=== PATIENT | male | born 1935 | race Caucasian/White ===

== ENCOUNTER 2017-01-12 14:45 | Emergency (ER) | payer MEDICARE, BC ==
[2017-01-12] MEDS ORDERED: Amoxicillin/Clavulanate K 875-125 MG Tab ONE (15:30)
--- NOTE | 2017-01-12 16:24 | EDM.PDOC ---
ED HPI GENERAL MEDICAL PROBLEM - General Chief Complaint: Lower Extremity Injury/Pain Stated Complaint: FLUID RETENTION/ LEFT LOWER EXTREMITY PAIN Time Seen by Provider: 01/12/17 15:30 Source of Information: Reports: Patient History Limitations: Reports: No Limitations - History of Present Illness INITIAL COMMENTS - FREE TEXT/NARRATIVE: This is a pleasant 81yo M here for recent swelling of b/l ankles and feet. Patient states the left foot is especially enlarged and tender. He has had prior infection of the lower extremity in the past requiring parenteral antibiotics for a month. Mr. Navarrete was recently changed from Furosemide to Torsemide about a week ago. He states he has not noticed much change in his urination and possibly decreased urine output. He did have some labs yesterday that showed a GFR of 51 which is at his baseline. Patient denies any shortness of breath that is worse from his COPD, he denies any increased dyspnea, no chest pain or tightness or other concerns. Denies any dizziness or lightheadedness. Patient does keep a daily weight log and shows that he started at a weight of 249lbs and is fluctuating around 1-2 lbs up and down at 240-242 lbs the past week since starting the torsemide. Patient does feel that he urinated more with the furosemide and he has not been doing so with the torsemide and also has been having increased swelling of the legs since the start of torsemide. Onset: Gradual Duration: Day(s): Severity: Moderate Improves with: Reports: None Worsens with: Reports: None Associated Symptoms: Reports: No Other Symptoms Left Lower Leg Pain Score (Numeric/FACES): 4 - Related Data Allergies Allergy/AdvReac Type Severity Reaction Status Date / Time No Known Allergies Allergy Verified 01/12/17 15:42 Past Medical History HEENT History: Reports: None Cardiovascular History: Reports: Heart Valve Replacement, High Cholesterol, Hypertension Respiratory History: Reports: COPD Gastrointestinal History: Reports: None Genitourinary History: Reports: Other (See Below) Other Genitourinary History: horseshoe kidney Endocrine/Metabolic History: Reports: Hypothyroidism Dermatologic History: Reports: Cellulitis - Past Surgical History HEENT Surgical History: Reports: Tonsillectomy Cardiovascular Surgical History: Reports: Coronary Artery Bypass, Pacer, Valve Replacement Respiratory Surgical History: Reports: None GI Surgical History: Reports: Cholecystectomy, Hernia Repair/Other Male Surgical History: Reports: None Musculoskeletal Surgical History: Reports: Knee Replacement Social & Family History - Tobacco Use Smoking Status *Q: Never Smoker - Recreational Drug Use Recreational Drug Use: No Review of Systems - Review of Systems Review Of Systems: ROS reveals no pertinent complaints other than HPI. ED EXAM, GENERAL - Physical Exam Exam: See Below Exam Limited By: No Limitations General Appearance: Alert, WD/WN, No Apparent Distress Eye Exam: Bilateral Eye: EOMI, PERRL Nose: Normal Inspection Throat/Mouth: Normal Inspection Head: Atraumatic, Normocephalic Respiratory/Chest: No Respiratory Distress, Lungs Clear, Normal Breath Sounds, Decreased Breath Sounds Cardiovascular: Other (b/l lower extremity edema 3+ up to knees) Peripheral Pulses: 2+: Dorsalis Pedis (L), Dorsalis Pedis (R) GI/Abdominal: Normal Bowel Sounds, Soft, Non-Tender Extremities: Pedal Edema Neurological: Alert, Oriented, CN II-XII Intact Psychiatric: Normal Affect, Normal Mood Skin Exam: Warm, Dry, Intact, Increased Warmth, Other (slight redness circumferential of the left lower calf area) Course - Vital Signs Last Recorded V/S: Last Vital Signs Temp 37.0 C 01/12/17 15:22 Pulse 65 01/12/17 15:22 Resp 18 01/12/17 15:22 BP 139/61 01/12/17 15:22 Pulse Ox 96 01/12/17 15:22 Departure - Departure Time of Disposition: 16:30 Disposition: Home, Self-Care 01 Condition: Good Clinical Impression: Edema, peripheral, Redness of skin - Discharge Information Instructions: Amoxicillin; Clavulanic Acid tablets, Chlorthalidone tablets Forms: ED Department Discharge Additional Instructions: Start Chlorthalidone 25mg every day for 30 days. Start Saturday when you get your script filled. Restart Lasix 40mg twice a day. Stop Torsemide. Provider stated if you don't notice that you are peeing any more, may increase Lasix to 80mg twice a day. Augmentin 1 tab orally twice a day for 10 days. Take with food. May cause diarrhea. Eat yogurt every day while you are on antibiotic. When you are sitting, elevate your legs. Continue with daily weights. Make follow up appt with Dr. Reynaga for next Saturday. Counseled on peripheral edema with continued daily weights and monitoring. I do not feel this is congestion due to any heart concerns. We will f/u electrolytes , edema and redness for infection at the next office visit or as needed. Patient to rtc or ER as needed.
== END 2017-01-12 16:17 | disposition home or self-care (01) ==
LOC: LB.ED 14:45
DX: R60.9 Edema, unspecified (principal); L53.9 Erythematous condition, unspecified; E78.00 Pure hypercholesterolemia, unspecified; I10 Essential (primary) hypertension; J44.9 Chronic obstructive pulmonary disease, unspecified; E03.9 Hypothyroidism, unspecified; Z95.1 Presence of aortocoronary bypass graft; Z95.0 Presence of cardiac pacemaker; Z90.49 Acquired absence of other specified parts of digestive tract
CPT/HCPCS: 99283; A9270

== ENCOUNTER 2017-09-16 15:42 | Emergency (ER) | payer MEDICARE, BC ==
[2017-09-16] MEDS ORDERED: Lidocaine 1% 20 ML MDV ONE (16:10)
--- NOTE | 2017-09-17 00:31 | ER ---
The patient is an 82-year-old female. DICTATION ENDS HERE GORGE/ZOILA /[id number]
--- NOTE | 2017-09-17 00:58 | ER ---
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 He notes he has taken the skin off the entire side of his left arm. ALLERGIES: NKDA. MEDICATIONS: Current medications are 1. Atorvastatin 80 mg p.o. daily. 2. Torsemide 80 mg p.o. daily. 3. Spiriva 2 puffs daily. 4. Terazosin 5 mg p.o. daily. 5. Spironolactone 25 mg p.o. daily. 6. Cozaar 25 mg p.o. daily. 7. Levothyroxine 125 mg p.o. daily. 8. Colace 100 mg p.o. daily. 9. Budesonide 2 puffs b.i.d. 10.Pradaxa 150 mg p.o. b.i.d. 11.Aspirin 81 mg p.o. daily. 12.Some Tylenol Arthritis which he takes p.r.n. PAST MEDICAL HISTORY: The patient has a previous history of congestive failure, hypertension and COPD. PHYSICAL EXAMINATION: GENERAL: He is alert, oriented, and in no apparent distress. VITAL SIGNS: Good. Pulse is 60, blood pressure is 132/53, respiratory rate is 19, and O2 saturation is 99%. HEART: Regular sinus rhythm. LUNGS: Clear. EXTREMITIES: On the left arm, the patient has avulsed the skin off the dorsal aspect of the forearm basically from his wrist to his elbow, pretty much all of the skin on the dorsal aspect of the forearm. He has a couple of small skin tears on the ventral aspect also, and on the lateral aspect of the upper arm, he has basically avulsed the piece of skin bigger than a palm-print, but the worst one is on the forearm. We basically put some topical 1% lidocaine with epinephrine on with a moist gauze pad and let it sit for a little bit. We then washed off the clotted blood both on the surface of the arm and on the ventral surface of the remaining skin. Fortunately, 98% of his skin was still attached; however, there was no blood supply to it because his skin is really quite thin. We cleaned off any clotted blood or grafts, etc., with normal saline after soaking it with the epinephrine/lidocaine for a bit. The patient tolerated it quite well as he no longer had any pain with that. We then stretched the skin out, flattened it down, made sure there was no blood underneath it, steri-stripped all the edges, put some Bactroban along the open edge, and put some Xeroform gauze over that. We then wrapped it with a Kerlix and then gently put an Benjamin wrap on to apply a little pressure. The patient probably has 4% to 5% body surface area going by his palm-print with the skin avulsed, however, 98% of the skin was still there, so we put it back on and hopefully will act as a graft and adhere. I did discuss with him he needs to take it easy for the next 2 days, not remove the dressing, and then come back into clinic. He needs to avoid flexing and extending his arm, come back into the clinic in [address] Reynaga to change the dressing and take a look to make sure there are no signs of infection, etc. This did take about an hour to get the skin all back on and get it all cleaned up and steri-stripped and dressed, etc. GORGE/ZOILA /[id number]
--- NOTE | 2017-10-28 08:20 | ER ---
ADDENDUM: FINAL DIAGNOSIS: Skin avulsion, 4-5% body surface area. GORGE/ZOILA /[id number]
== END 2017-09-16 16:00 | disposition home or self-care (01) ==
LOC: LB.ED 15:42
DX: S41.112A Laceration without foreign body of left upper arm, initial encounter (principal); J44.9 Chronic obstructive pulmonary disease, unspecified; I11.0 Hypertensive heart disease with heart failure; I50.9 Heart failure, unspecified; Z79.899 Other long term (current) drug therapy; Z79.82 Long term (current) use of aspirin; V98.8XXA Other specified transport accidents, initial encounter
CPT/HCPCS: 99283; 99354

== ENCOUNTER 2017-09-17 16:39 | Emergency (ER) | payer MEDICARE, BC ==
[~2017-09-17 16:39] MED LIST: Acetaminophen/oxyCODONE 325-5 MG Tab ONE
[2017-09-17] MEDS ORDERED: Diphtheria/Tetanus Toxoids,Adult (Td) 0.5 ML SDV IM ONE (18:29)
--- NOTE | 2017-09-17 23:58 | ER ---
DATE OF SERVICE: 09/17/2017 HPI: An 82-year-old male here with complaints of chest pain that seems to happen when coughing or taking a deep breath or changing positions. The patient states that it started yesterday, but it was not so bad. This is when he had an accident. 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 He came in, was seen here in the emergency room for multiple injuries to the left arm with the skin being abraded and having what it sounds like multiple skin tears. The ER physician cleansed the arm well and reapplied the pieces of loose skin and applied the Nu Gauze over the area as well as a padded dressing. The patient does have an appointment tomorrow morning to see Dr. Reynaga for a followup in this regard. The patient states his arm is painful, but it is not his biggest concern today. His chest wall pain on the left side is. He does not feel nauseated. He is concerned because his ankles are both swelling more and he feels he has gained, maybe as much as 8 pounds in the last few days. The patient is on diuretics as well telling me he takes Lasix 40 mg every morning and another diuretic, he is not sure about the name of. The patient denies any significant shortness of breath, but tells me that when he coughs it is quite painful. OBJECTIVE: GENERAL APPEARANCE: The patient is awake and alert, in no obvious distress. VITAL SIGNS: Reviewed. Initial blood pressure 118/45, temp is 99 degrees, pulse is 60, O2 sats are 94%. Physical exam, lung exam reveals lungs are clear, but the patient is not able to take much of a deep breath. I do not hear any obvious rales, wheezes, or rhonchi. He does have pain with palpation over the left anterior chest wall with some guarding present. SKIN: Warm and dry in this area. CARDIAC: Heart sounds distinct with a regular rate. The patient does have a pacemaker. LABORATORY DATA: Labs today include a CBC showing a normal white count. Neutrophils are slightly elevated at 79.5. Basic metabolic panel shows the electrolytes are good. Blood sugar is 156, nonfasting. A chest CT was also done showing 2 acute rib fractures posteriorly involving the fifth and sixth rib. DIAGNOSES: 1. Rib fractures due to a fall one day ago. 2. Recheck involving multiple skin tears with skin abrasions to the left arm. 3. Edema of both lower extremities. TREATMENT PLAN: I informed the patient of the rib fractures. I will give him Percocet to take as needed for pain control. I advised the patient to use this regularly for the first day or 2 and then as needed. If one tablet seems to be too much, he can take one-half tablet and the patient agrees to do this. He does have a good recliner chair at home that is electric. I advised the patient that this is where he needs to be sleeping for the next couple of weeks. The patient can splint the left chest wall with a pillow if he needs to cough. In turning my attention to the patient's left arm, the dressing has soaked through with the reddish colored discharge in multiple places. The gauze portion of the dressing was removed and replaced with a new dressing. I did not remove the underlying dressing, which would be a Xeroform gauze. Lastly, in looking at the patient's ankles, he does have 2 to 3+ pitting edema involving both lower legs and ankles. I advised the patient that he should increase his Lasix dose temporarily. He takes Lasix 40 mg in the morning. He should increase this to b.i.d. dosing starting tomorrow. The patient does have an appointment once again with Dr. Reynaga tomorrow at about 1:30 I believe in the afternoon. He can wait and consult with Dr. Reynaga in this regard, but he is to follow up with Dr. Reynaga for all of these conditions and to answer any further questions that the patient may have at that time. He has no further questions tonight. CRS/MODL /[id number] ROD
--- NOTE | 2017-09-18 09:58 | CT ---
UNENHANCED CHEST CT, 09/17/17 Multislice acquisition through the chest without IV contrast was performed. No priors. Breathing motion artifact significantly degrades image quality. The patient is status post median sternotomy. There is a cardiac pacer overlying the left chest and the distal pacer wires are noted within the right atrium and right ventricle. There are atelectatic changes within the left lower lobe and lingular segment of the left upper lobe with eventration of the left hemidiaphragm. There are also mild atelectatic changes in the right lung base. No pneumothorax. There is a small left pleural effusion. The heart is enlarged. There are extensive coronary artery calcifications. The patient is status post aortic valve repair. No hilar or mediastinal adenopathy. There are nondisplaced, minimally displaced fractures of the left fifth and sixth ribs. No other displaced fractures. IMPRESSION: Fractures of the left fifth and sixth ribs as discussed above. Small left pleural effusion. No pneumothorax. Other findings as discussed above. [id number] [facility]
== END 2017-09-17 18:50 ==
LOC: LB.ED 16:39
DX: S22.42XA Multiple fractures of ribs, left side, initial encounter for closed fracture (principal); J90 Pleural effusion, not elsewhere classified; S40.812A Abrasion of left upper arm, initial encounter; R60.0 Localized edema; X58.XXXA Exposure to other specified factors, initial encounter
CPT/HCPCS: 36415; 71250; 80048; 83880; 85025; 90471; 90714; 99284; A9270

== ENCOUNTER 2017-11-05 13:36 | Emergency (ER) | payer MEDICARE, BC ==
[2017-11-05] MEDS ORDERED: Lidocaine 1% with EPINEPHrine 1:100,000 20 ML MDV ONE (14:45)
--- NOTE | 2017-11-05 23:02 | ER ---
HISTORY OF PRESENT ILLNESS: An 82-year-old male who comes in after slipping and falling and sustaining a large laceration to the right leg just below the knee. The patient states he just lost his balance and fell to the floor and his leg rubbed on the carpet. He tells me that he has not been able to stand and walk with just minimal discomfort. Pressure was held to the area to try to stop the bleeding. He did bleed quite a bit for a few minutes. The patient denied any other injuries. OBJECTIVE: GENERAL APPEARANCE: The patient is awake and alert. No obvious distress. VITAL SIGNS: Reviewed as listed. EXTREMITIES: Examining the right leg reveals a transverse laceration just below the patient's patella and that measures 9 cm in length. It is gaping about 3 to 4 cm at the widest point at this time, it is a full thickness through the epidermis and dermis down to the fascia. I do not see any damage to the fascia. DIAGNOSIS: Laceration to right leg. TREATMENT PLAN: The site was cleansed by nursing staff initially after which I injected 1% lidocaine with epi locally injecting 6 mL around the perimeter of the laceration. Then, we proceeded with more irrigation, irrigating the site well using about 400 to 500 mL after which a sterile field was applied and I repaired the wound with sutures, it required 20 sutures using 4-0 Ethilon. The patient tolerated the procedure well. POST-CARE INSTRUCTION: Nursing staff applied antibiotic ointment, Telfa, Preet, and Coban as a circumferential dressing. This is to remain in place until he follows up in the clinic on for recheck. It should be changed sooner if it becomes wet or soiled. I will start the patient on Augmentin for one week. The patient feels he is current on his tetanus. He declines any pain medication stating that it has not been severely painful at all since the incident happened. The patient agrees to follow up in the clinic on . MANN/MODL /[id number]
== END 2017-11-05 14:30 | disposition home or self-care (01) ==
LOC: LB.ED 13:36
DX: S81.811A Laceration without foreign body, right lower leg, initial encounter (principal); W01.0XXA Fall on same level from slipping, tripping and stumbling without subsequent striking against object, initial encounter
CPT/HCPCS: 12004; 99283-25

== ENCOUNTER 2017-11-27 15:10 | Inpatient (IN) | payer SELFPAY ==
--- NOTE | 2017-11-27 16:51 | PCM.HP ---
H&P History of Present Illness - General Date of Service: 11/27/17 Admit Problem/Dx: Admission Diagnosis/Problem Admission Diagnosis/Problem Wound Source of Information: Patient History Limitations: Reports: No Limitations - History of Present Illness Initial Comments - Free Text/Narative: This is a pleasant 82yo M admitted to respite care for wound monitoring and care as well as PT/OT. Patient has had multiple falls with abrasions and non- healing wounds. There appears to be some infection and poor healing of his wounds and he has been unable to ambulate well and now with a revision of the right knee and immobilizer he is unable to independently stay at home. Onset of Symptoms: Reports: Gradual Location: Reports: Upper Extremity, Left, Upper Extremity, Right, Lower Extremity, Right Severity: Moderate Worsens with: Reports: Movement - Related Data Allergies/Adverse Reactions: Allergies Allergy/AdvReac Type Severity Reaction Status Date / Time No Known Allergies Allergy Verified 01/12/17 15:42 Home Medications: Home Meds Acetaminophen [Tylenol Arthritis] 650 mg PO BID 01/12/17 [History] Aspirin [Lakisha Chewable] 81 mg PO DAILY 01/12/17 [History] Budesonide/Formoterol [Symbicort 160-4.5 MCG] 2 puff INH BID 01/12/17 [History] Dabigatran Etexilate Mesylate [Pradaxa] 150 mg PO BID 01/12/17 [History] Docusate Sodium [Colace] 100 mg PO DAILY 01/12/17 [History] Levothyroxine 125 mcg PO ACBREAKFAST 01/12/17 [History] Losartan [Cozaar] 25 mg PO DAILY 01/12/17 [History] Multivitamin with Iron [Multivitamins with Iron] 1 each PO DAILY 01/12/17 [ History] Spironolactone [Aldactone] 25 mg PO DAILY 01/12/17 [History] Terazosin [Hytrin] 5 mg PO DAILY 01/12/17 [History] Tiotropium [Spiriva Handihaler] 2 puff INH DAILY 01/12/17 [History] Torsemide 80 mg PO DAILY 01/12/17 [History] atorvaSTATin Calcium [Atorvastatin Calcium] 80 mg PO QPM 01/12/17 [History] Past Medical History HEENT History: Reports: None Cardiovascular History: Reports: Heart Valve Replacement, High Cholesterol, Hypertension Respiratory History: Reports: COPD Gastrointestinal History: Reports: None Genitourinary History: Reports: Other (See Below) Other Genitourinary History: horseshoe kidney Musculoskeletal History: Reports: Arthritis Endocrine/Metabolic History: Reports: Hypothyroidism Dermatologic History: Reports: Cellulitis - Infectious Disease History Infectious Disease History: Reports: Chicken Pox - Past Surgical History HEENT Surgical History: Reports: Tonsillectomy Cardiovascular Surgical History: Reports: Coronary Artery Bypass, Pacer, Valve Replacement Respiratory Surgical History: Reports: None GI Surgical History: Reports: Cholecystectomy, Hernia Repair/Other Male Surgical History: Reports: None Musculoskeletal Surgical History: Reports: Knee Replacement Social & Family History - Family History Family Medical History: Noncontributory - Caffeine Use Caffeine Use: Reports: Coffee H&P Review of Systems - Review of Systems: Review Of Systems: ROS reveals no pertinent complaints other than HPI. Exam - Exam Exam: See Below - Vital Signs Vital Signs: Last Vital Signs Temp 36.9 C 11/27/17 15:50 Pulse 60 11/27/17 15:50 Resp 16 11/27/17 15:50 BP 131/46 L 11/27/17 15:50 Pulse Ox 98 11/27/17 15:50 - Exam General: Alert, Oriented, Cooperative HEENT: PERRLA, Conjunctiva Clear, EACs Clear, EOMI Neck: Supple, Trachea Midline Lungs: Clear to Auscultation, Normal Respiratory Effort Cardiovascular: Regular Rate, Regular Rhythm GI/Abdominal Exam: Normal Bowel Sounds Extremities: Arm Pain, Redness, Other (multiple abrasions and wounds) Skin: Ecchymosis, Wound - Problem List (1) Abrasion of left upper extremity SNOMED Code(s): 739139107 ICD Code: S40.812A - ABRASION OF LEFT UPPER ARM, INITIAL ENCOUNTER Status: Acute Priority: High Current Visit: Yes Qualifiers: Encounter type: sequela Qualified Code(s): S40.812S - Abrasion of left upper arm, sequela (2) Abrasion of right upper extremity SNOMED Code(s): 187086702 ICD Code: S40.811A - ABRASION OF RIGHT UPPER ARM, INITIAL ENCOUNTER Status : Acute Priority: High Current Visit: Yes Qualifiers: Encounter type: sequela Qualified Code(s): S40.811S - Abrasion of right upper arm, sequela (3) Edema, peripheral SNOMED Code(s): 643074392 ICD Code: R60.9 - EDEMA, UNSPECIFIED Status: Chronic Priority: High Current Visit: Yes (4) Laceration of leg, right SNOMED Code(s): 387416384 ICD Code: S81.811A - LACERATION W/O FOREIGN BODY, RIGHT LOWER LEG, INIT ENCNTR Status: Acute Priority: High Current Visit: Yes Onset Date: ~ Qualifiers: Encounter type: sequela Qualified Code(s): S81.811S - Laceration without foreign body, right lower leg, sequela (5) Redness of skin SNOMED Code(s): 16437642 ICD Code: L53.9 - ERYTHEMATOUS CONDITION, UNSPECIFIED Status: Acute Priority: High Current Visit: Yes Problem List Initiated/Reviewed/Updated: Yes Orders Last 24hrs: Active Orders 24 hr Category Date Time Status Patient Status [ADT] Routine ADT 11/27/17 15:55 Active Vital Signs [RC] QSHIFT Care 11/27/17 15:55 Ordered Acetaminophen [Tylenol Arthritis Pain] Med 11/27/17 20:00 Ordered 650 mg PO BID Aspirin Med 11/28/17 08:00 Ordered 81 mg PO DAILY Budesonide/Formoterol [Symbicort 160-4.5 MCG] Med 11/27/17 20:00 Ordered 2 puff INH BID Dabigatran Etexilate Mesylate [Pradaxa] Med 11/27/17 20:00 Ordered 150 mg PO BID Docusate Sodium [Colace] Med 11/28/17 08:00 Ordered 100 mg PO DAILY Levothyroxine [Levothyroxine] Med 11/28/17 07:00 Ordered 125 mcg PO ACBREAKFAST Losartan [Cozaar] Med 11/28/17 08:00 Ordered 25 mg PO DAILY Multivitamin with Iron [Multivitamins with Iron] Med 11/28/17 08:00 Ordered 1 each PO DAILY Spironolactone [Aldactone] Med 11/28/17 08:00 Ordered 25 mg PO DAILY Terazosin [Hytrin] Med 11/28/17 08:00 Ordered 5 mg PO DAILY Tiotropium [Spiriva HandiHaler] Med 11/28/17 08:00 Ordered 2 puff INH DAILY Torsemide [Demadex] Med 11/28/17 08:00 Ordered 80 mg PO DAILY atorvaSTATin [Lipitor] Med 11/27/17 20:00 Ordered 80 mg PO QPM Assessment/Plan Comment:: Patient admitted to respite care for management of wounds and wound care. PT/OT therapy as well.
[2017-11-28] MEDS: Spironolactone 25 MG Tab PO SCH (08:00)
[2017-11-28] MEDS: [UNRECOGNIZED DRUG - OTHER] INH SCH (08:00)
[2017-11-28] MEDS: TERAZOSIN 5 MG PO SCH (08:00)
[2017-11-28] MEDS ORDERED: Tiotropium Inhaler 18 MCG Inhalation Powder Cap Kit of 5 INH SCH (08:00)
[2017-11-28] MEDS: Non-Formulary Medication 1 Each (Budesonide/Formoterol [Symbicort 160-4.5 Mcg] 2 PUFF) INH SCH ×3 (08:00→20:54)
[2017-11-28] MEDS: Acetaminophen 650 MG Tab.ER PO SCH ×3 (08:00→20:58)
[2017-11-28] MEDS: [UNRECOGNIZED DRUG - OTHER] PO SCH (08:00)
[2017-11-28] MEDS: Aspirin 81 MG Tab.Chew PO SCH (08:00)
[2017-11-28] MEDS: Non-Formulary Medication 1 Each (Levothyroxine [Levothyroxine] 125 MCG) PO SCH (08:00)
[2017-11-28] MEDS: Docusate Sodium 100 MG Cap PO SCH (08:00)
[2017-11-28] MEDS: MULTIVITAMIN WITH IRON PO SCH (08:00)
[2017-11-28] MEDS: DABIGATRAN ETEXILATE MESYLATE 150 MG PO SCH ×3 (08:00→20:56)
[2017-11-28] MEDS: Amoxicillin/Clavulanate K 875-125 MG Tab PO SCH ×2 (08:00→20:53)
[2017-11-28] MEDS: Torsemide 20 MG Tab PO SCH (08:00)
[2017-11-28] MEDS: Losartan 25 MG Tab PO SCH (08:00)
[2017-11-28] MEDS: atorvaSTATin 80 MG Tab PO SCH ×2 (10:40→20:58)
[2017-11-29] MEDS ORDERED: Levothyroxine 25 MCG Tab ONE (09:10)
[2017-11-29] MEDS: Non-Formulary Medication 1 Each (Budesonide/Formoterol [Symbicort 160-4.5 Mcg] 2 PUFF) INH SCH ×2 (09:11→20:17)
[2017-11-29] MEDS ORDERED: Levothyroxine 100 MCG Tab ONE (09:11)
[2017-11-29] MEDS: [UNRECOGNIZED DRUG - OTHER] INH SCH (09:12)
[2017-11-29] MEDS: Acetaminophen 650 MG Tab.ER PO SCH ×2 (09:12→20:19)
[2017-11-29] MEDS: Docusate Sodium 100 MG Cap PO SCH (09:12)
[2017-11-29] MEDS: MULTIVITAMIN WITH IRON PO SCH (09:13)
[2017-11-29] MEDS: TERAZOSIN 5 MG PO SCH (09:13)
[2017-11-29] MEDS: Aspirin 81 MG Tab.Chew PO SCH (09:13)
[2017-11-29] MEDS: [UNRECOGNIZED DRUG - OTHER] PO SCH (09:13)
[2017-11-29] MEDS: Torsemide 20 MG Tab PO SCH (09:14)
[2017-11-29] MEDS: Spironolactone 25 MG Tab PO SCH (09:14)
[2017-11-29] MEDS: Losartan 25 MG Tab PO SCH (09:15)
[2017-11-29] MEDS: Amoxicillin/Clavulanate K 875-125 MG Tab PO SCH ×2 (09:15→20:20)
[2017-11-29] MEDS: DABIGATRAN ETEXILATE MESYLATE 150 MG PO SCH ×2 (09:15→20:19)
[2017-11-29] MEDS: Non-Formulary Medication 1 Each (Levothyroxine [Levothyroxine] 125 MCG) PO SCH (09:19)
[2017-11-29] MEDS: traMADol 50 MG Tab PO PRN ×2 (16:42→22:12)
[2017-11-29] MEDS: atorvaSTATin 80 MG Tab PO SCH (20:21)
[2017-11-30] MEDS ORDERED: Levothyroxine 100 MCG Tab ONE (07:51)
[2017-11-30] MEDS ORDERED: Levothyroxine 25 MCG Tab ONE (07:51)
[2017-11-30] MEDS: MULTIVITAMIN WITH IRON PO SCH (07:55)
[2017-11-30] MEDS: [UNRECOGNIZED DRUG - OTHER] PO SCH (07:55)
[2017-11-30] MEDS: TERAZOSIN 5 MG PO SCH (07:55)
[2017-11-30] MEDS: Acetaminophen 650 MG Tab.ER PO SCH ×2 (07:55→19:50)
[2017-11-30] MEDS: DABIGATRAN ETEXILATE MESYLATE 150 MG PO SCH ×2 (07:56→19:47)
[2017-11-30] MEDS: Losartan 25 MG Tab PO SCH (07:57)
[2017-11-30] MEDS: Spironolactone 25 MG Tab PO SCH (07:57)
[2017-11-30] MEDS: Docusate Sodium 100 MG Cap PO SCH (07:58)
[2017-11-30] MEDS: Amoxicillin/Clavulanate K 875-125 MG Tab PO SCH ×2 (07:58→19:48)
[2017-11-30] MEDS: Aspirin 81 MG Tab.Chew PO SCH (07:59)
[2017-11-30] MEDS: Non-Formulary Medication 1 Each (Levothyroxine [Levothyroxine] 125 MCG) PO SCH (08:00)
[2017-11-30] MEDS: [UNRECOGNIZED DRUG - OTHER] INH SCH (08:01)
[2017-11-30] MEDS: Non-Formulary Medication 1 Each (Budesonide/Formoterol [Symbicort 160-4.5 Mcg] 2 PUFF) INH SCH ×2 (08:01→19:46)
[2017-11-30] MEDS: Torsemide 20 MG Tab PO SCH (08:09)
[2017-11-30] MEDS: traMADol 50 MG Tab PO PRN ×2 (17:27→19:51)
[2017-11-30] MEDS: atorvaSTATin 80 MG Tab PO SCH (19:49)
[2017-12-01] MEDS: Non-Formulary Medication 1 Each (Budesonide/Formoterol [Symbicort 160-4.5 Mcg] 2 PUFF) INH SCH ×2 (08:10→19:28)
[2017-12-01] MEDS: Acetaminophen 650 MG Tab.ER PO SCH ×2 (08:10→19:28)
[2017-12-01] MEDS: Spironolactone 25 MG Tab PO SCH (08:10)
[2017-12-01] MEDS: [UNRECOGNIZED DRUG - OTHER] PO SCH (08:10)
[2017-12-01] MEDS: Docusate Sodium 100 MG Cap PO SCH (08:10)
[2017-12-01] MEDS: MULTIVITAMIN WITH IRON PO SCH (08:10)
[2017-12-01] MEDS: DABIGATRAN ETEXILATE MESYLATE 150 MG PO SCH ×2 (08:11→19:31)
[2017-12-01] MEDS: TERAZOSIN 5 MG PO SCH (08:11)
[2017-12-01] MEDS: Amoxicillin/Clavulanate K 875-125 MG Tab PO SCH ×2 (08:11→19:30)
[2017-12-01] MEDS: Non-Formulary Medication 1 Each (Levothyroxine [Levothyroxine] 125 MCG) PO SCH (08:11)
[2017-12-01] MEDS: Aspirin 81 MG Tab.Chew PO SCH (08:12)
[2017-12-01] MEDS: Losartan 25 MG Tab PO SCH (08:12)
[2017-12-01] MEDS: Torsemide 20 MG Tab PO SCH (08:12)
[2017-12-01] MEDS: [UNRECOGNIZED DRUG - OTHER] INH SCH (08:13)
[2017-12-01] MEDS: atorvaSTATin 80 MG Tab PO SCH (19:30)
[2017-12-01] MEDS: traMADol 50 MG Tab PO PRN (19:34)
[2017-12-02] MEDS: [UNRECOGNIZED DRUG - OTHER] INH SCH (07:45)
[2017-12-02] MEDS: Non-Formulary Medication 1 Each (Budesonide/Formoterol [Symbicort 160-4.5 Mcg] 2 PUFF) INH SCH ×2 (07:45→20:11)
[2017-12-02] MEDS: MULTIVITAMIN WITH IRON PO SCH (07:46)
[2017-12-02] MEDS: [UNRECOGNIZED DRUG - OTHER] PO SCH (07:46)
[2017-12-02] MEDS: Non-Formulary Medication 1 Each (Levothyroxine [Levothyroxine] 125 MCG) PO SCH (07:46)
[2017-12-02] MEDS: Torsemide 20 MG Tab PO SCH (07:46)
[2017-12-02] MEDS: Spironolactone 25 MG Tab PO SCH (07:46)
[2017-12-02] MEDS: Docusate Sodium 100 MG Cap PO SCH (07:46)
[2017-12-02] MEDS: DABIGATRAN ETEXILATE MESYLATE 150 MG PO SCH ×2 (07:47→20:09)
[2017-12-02] MEDS: Losartan 25 MG Tab PO SCH (07:48)
[2017-12-02] MEDS: Amoxicillin/Clavulanate K 875-125 MG Tab PO SCH ×2 (07:48→20:11)
[2017-12-02] MEDS: Aspirin 81 MG Tab.Chew PO SCH (07:48)
[2017-12-02] MEDS: TERAZOSIN 5 MG PO SCH (07:48)
[2017-12-02] MEDS: Acetaminophen 650 MG Tab.ER PO SCH ×2 (08:24→20:08)
[2017-12-02] MEDS ORDERED: cefTRIAXone 1 GM Vial ONE (11:16)
[2017-12-02] MEDS ORDERED: cefTRIAXone 1 GM Vial IM ONE (13:17)
--- NOTE | 2017-12-02 17:26 | PCM.PN ---
- General Info Date of Service: 12/02/17 Subjective Update: Patient states he is doing well. His wounds have some drainage and he denies any fever or chills. - Review of Systems General: Reports: Weakness HEENT: Reports: No Symptoms Pulmonary: Reports: No Symptoms Cardiovascular: Reports: No Symptoms Gastrointestinal: Reports: No Symptoms Genitourinary: Reports: No Symptoms Musculoskeletal: Reports: No Symptoms Skin: Reports: Other (wound of the right elbow, right hand, right knee) Neurological: Reports: Difficulty Walking, Weakness - Patient Data Vitals - Most Recent: Last Vital Signs Temp 36.9 C 12/02/17 08:00 Pulse 60 12/02/17 08:00 Resp 16 12/02/17 08:00 BP 140/51 L 12/02/17 08:00 Pulse Ox 92 L 12/02/17 08:00 Weight - Most Recent: 103.561 kg Med Orders - Current: Current Medications Acetaminophen (Tylenol Arthritis Pain) 650 mg PO BID [facility] Last Admin: 12/02/17 08:24 Dose: 650 mg Amoxicillin/Clavulanate Potassium (Augmentin 875 Mg/125 Mg) 1 tab PO BID [facility] Last Admin: 12/02/17 07:48 Dose: 1 tab Aspirin (Aspirin) 81 mg PO DAILY [facility] Last Admin: 12/02/17 07:48 Dose: 81 mg Atorvastatin Calcium (Lipitor) 80 mg PO QPM [facility] Last Admin: 12/01/17 19:30 Dose: 80 mg Docusate Sodium (Colace) 100 mg PO DAILY [facility] Last Admin: 12/02/17 07:46 Dose: 100 mg Losartan Potassium (Cozaar) 25 mg PO DAILY [facility] Last Admin: 12/02/17 07:48 Dose: 25 mg Non-Formulary Medication (Budesonide/Formoterol [Symbicort 160-4.5 Mcg]) 2 puff INH BID [facility] Last Admin: 12/02/17 07:45 Dose: 2 puff Non-Formulary Medication (Dabigatran Etexilate Mesylate [Pradaxa]) 150 mg PO BID [facility] Last Admin: 12/02/17 07:47 Dose: 150 mg Non-Formulary Medication (Levothyroxine [Levothyroxine]) 125 mcg PO ACBREAKFAST [facility] Last Admin: 12/02/17 07:46 Dose: 125 mcg Non-Formulary Medication (Multivitamin With Iron [Multivitamins With Iron]) 1 each PO DAILY [facility] Last Admin: 12/02/17 07:46 Dose: 1 each Non-Formulary Medication (Terazosin [Hytrin]) 5 mg PO DAILY [facility] Last Admin: 12/02/17 07:48 Dose: 5 mg Sprivia Respimat 1 each INH DAILY [facility] Last Admin: 12/02/17 07:45 Dose: 1 each Spironolactone (Aldactone) 25 mg PO DAILY [facility] Last Admin: 12/02/17 07:46 Dose: 25 mg Torsemide (Demadex) 80 mg PO DAILY [facility] Last Admin: 12/02/17 07:46 Dose: 80 mg Tramadol HCl (Ultram) 50 mg PO Q8H PRN PRN Reason: Pain Last Admin: 12/01/17 19:34 Dose: 50 mg Discontinued Medications Ceftriaxone Sodium (Rocephin) Confirm Administered Dose 1 gm .ROUTE .STK-MED ONE Stop: 12/02/17 11:17 Last Admin: 12/02/17 13:23 Dose: 1 gm Ceftriaxone Sodium (Rocephin) 1 gm IM ONETIME ONE Stop: 12/02/17 13:18 Levothyroxine Sodium (Levothyroxine) Confirm Administered Dose 25 mcg .ROUTE .STK-MED ONE Stop: 11/29/17 09:11 Last Admin: 11/29/17 09:32 Dose: Not Given Levothyroxine Sodium (Synthroid) Confirm Administered Dose 100 mcg .ROUTE .STK- MED ONE Stop: 11/29/17 09:12 Last Admin: 11/29/17 09:32 Dose: Not Given Levothyroxine Sodium (Levothyroxine) Confirm Administered Dose 25 mcg .ROUTE .STK-MED ONE Stop: 11/30/17 07:52 Last Admin: 11/30/17 08:10 Dose: Not Given Levothyroxine Sodium (Synthroid) Confirm Administered Dose 100 mcg .ROUTE .STK- MED ONE Stop: 11/30/17 07:52 Last Admin: 11/30/17 08:10 Dose: Not Given - Exam General: Alert, Oriented, Cooperative HEENT: Pupils Equal, Pupils Reactive Neck: Supple Lungs: Clear to Auscultation, Normal Respiratory Effort Cardiovascular: Regular Rate, Regular Rhythm Skin: Other (multiple wounds - healing improved from last check) - Problem List & Annotations (1) Abrasion of left upper extremity SNOMED Code(s): 402959756 Code(s): S40.812A - ABRASION OF LEFT UPPER ARM, INITIAL ENCOUNTER Status: Acute Priority: High Current Visit: Yes Qualifiers: Encounter type: sequela Qualified Code(s): S40.812S - Abrasion of left upper arm, sequela (2) Abrasion of right upper extremity SNOMED Code(s): 064677900 Code(s): S40.811A - ABRASION OF RIGHT UPPER ARM, INITIAL ENCOUNTER Status: Acute Priority: High Current Visit: Yes Qualifiers: Encounter type: sequela Qualified Code(s): S40.811S - Abrasion of right upper arm, sequela (3) Edema, peripheral SNOMED Code(s): 957024376 Code(s): R60.9 - EDEMA, UNSPECIFIED Status: Chronic Priority: High Current Visit: Yes (4) Laceration of leg, right SNOMED Code(s): 546017832 Code(s): S81.811A - LACERATION W/O FOREIGN BODY, RIGHT LOWER LEG, INIT ENCNTR Status: Acute Priority: High Current Visit: Yes Onset Date: ~ Qualifiers: Encounter type: sequela Qualified Code(s): S81.811S - Laceration without foreign body, right lower leg, sequela (5) Redness of skin SNOMED Code(s): 93613109 Code(s): L53.9 - ERYTHEMATOUS CONDITION, UNSPECIFIED Status: Acute Priority: High Current Visit: Yes - Problem List Review Problem List Initiated/Reviewed/Updated: Yes - Plan Plan:: Patient admitted to respite care for management of wounds and wound care. PT/OT therapy as well. 12/02/17 Continue current wound management. Trial of rocephin due to some erythema of knee. F/u recheck as routine. Continue dressing changes daily.
[2017-12-02] MEDS: atorvaSTATin 80 MG Tab PO SCH (20:08)
[2017-12-03] MEDS: Non-Formulary Medication 1 Each (Levothyroxine [Levothyroxine] 125 MCG) PO SCH (07:34)
[2017-12-03] MEDS: DABIGATRAN ETEXILATE MESYLATE 150 MG PO SCH ×2 (07:34→20:35)
[2017-12-03] MEDS: TERAZOSIN 5 MG PO SCH (07:35)
[2017-12-03] MEDS: Aspirin 81 MG Tab.Chew PO SCH (07:35)
[2017-12-03] MEDS: Docusate Sodium 100 MG Cap PO SCH (07:35)
[2017-12-03] MEDS: MULTIVITAMIN WITH IRON PO SCH (07:35)
[2017-12-03] MEDS: [UNRECOGNIZED DRUG - OTHER] PO SCH (07:35)
[2017-12-03] MEDS: Non-Formulary Medication 1 Each (Budesonide/Formoterol [Symbicort 160-4.5 Mcg] 2 PUFF) INH SCH ×2 (07:36→20:37)
[2017-12-03] MEDS: Amoxicillin/Clavulanate K 875-125 MG Tab PO SCH ×2 (07:36→20:35)
[2017-12-03] MEDS: [UNRECOGNIZED DRUG - OTHER] INH SCH (07:37)
[2017-12-03] MEDS: Losartan 25 MG Tab PO SCH (07:37)
[2017-12-03] MEDS: Spironolactone 25 MG Tab PO SCH (07:37)
[2017-12-03] MEDS: Acetaminophen 650 MG Tab.ER PO SCH ×2 (07:40→20:35)
[2017-12-03] MEDS: Torsemide 20 MG Tab PO SCH (10:29)
[2017-12-03] MEDS ORDERED: Acetaminophen/HYDROcodone 325-5 MG Tab PO PRN (11:15)
[2017-12-03] MEDS: atorvaSTATin 80 MG Tab PO SCH (20:35)
[2017-12-04] MEDS: Non-Formulary Medication 1 Each (Levothyroxine [Levothyroxine] 125 MCG) PO SCH (07:18)
[2017-12-04] MEDS: Non-Formulary Medication 1 Each (Budesonide/Formoterol [Symbicort 160-4.5 Mcg] 2 PUFF) INH SCH ×2 (08:00→20:37)
[2017-12-04] MEDS: Docusate Sodium 100 MG Cap PO SCH (08:00)
[2017-12-04] MEDS: [UNRECOGNIZED DRUG - OTHER] INH SCH (08:00)
[2017-12-04] MEDS: Torsemide 20 MG Tab PO SCH (08:01)
[2017-12-04] MEDS: DABIGATRAN ETEXILATE MESYLATE 150 MG PO SCH ×2 (08:01→20:36)
[2017-12-04] MEDS: Amoxicillin/Clavulanate K 875-125 MG Tab PO SCH ×2 (08:01→20:37)
[2017-12-04] MEDS: TERAZOSIN 5 MG PO SCH (08:02)
[2017-12-04] MEDS: [UNRECOGNIZED DRUG - OTHER] PO SCH (08:03)
[2017-12-04] MEDS: Spironolactone 25 MG Tab PO SCH (08:03)
[2017-12-04] MEDS: Acetaminophen 650 MG Tab.ER PO SCH ×2 (08:03→20:35)
[2017-12-04] MEDS: Aspirin 81 MG Tab.Chew PO SCH (08:03)
[2017-12-04] MEDS: MULTIVITAMIN WITH IRON PO SCH (08:03)
[2017-12-04] MEDS: Losartan 25 MG Tab PO SCH (08:04)
[2017-12-04] MEDS: atorvaSTATin 80 MG Tab PO SCH (20:36)
[2017-12-05] MEDS: Non-Formulary Medication 1 Each (Levothyroxine [Levothyroxine] 125 MCG) PO SCH (07:22)
[2017-12-05] MEDS: Aspirin 81 MG Tab.Chew PO SCH (08:24)
[2017-12-05] MEDS: Docusate Sodium 100 MG Cap PO SCH (08:24)
[2017-12-05] MEDS: Acetaminophen 650 MG Tab.ER PO SCH (08:24)
[2017-12-05] MEDS: Amoxicillin/Clavulanate K 875-125 MG Tab PO SCH (08:25)
[2017-12-05] MEDS: Losartan 25 MG Tab PO SCH (08:26)
[2017-12-05] MEDS: DABIGATRAN ETEXILATE MESYLATE 150 MG PO SCH (08:30)
[2017-12-05] MEDS: Torsemide 20 MG Tab PO SCH (08:33)
[2017-12-05] MEDS: TERAZOSIN 5 MG PO SCH (08:34)
[2017-12-05] MEDS: Spironolactone 25 MG Tab PO SCH (08:36)
[2017-12-05] MEDS: [UNRECOGNIZED DRUG - OTHER] INH SCH (08:36)
[2017-12-05] MEDS: Non-Formulary Medication 1 Each (Budesonide/Formoterol [Symbicort 160-4.5 Mcg] 2 PUFF) INH SCH (08:36)
[2017-12-05] MEDS: MULTIVITAMIN WITH IRON PO SCH (08:40)
[2017-12-05] MEDS: [UNRECOGNIZED DRUG - OTHER] PO SCH (08:40)
--- NOTE | 2017-12-05 11:59 | PCM.DCSUM1 ---
Discharge Summary - Hospital Course Free Text/Narrative:: Patient continues to have issues with right knee wound healing. Brief History: Right knee sutures removed without complications. 3 hours later the wound dehisced despite use of immobilizer. - Discharge Data Discharge Date: 12/05/17 Discharge Disposition: Refer to Observation Condition: Good - Discharge Diagnosis/Problem(s) (1) Abrasion of left upper extremity SNOMED Code(s): 145119352 ICD Code: S40.812A - ABRASION OF LEFT UPPER ARM, INITIAL ENCOUNTER Status: Acute Priority: High Current Visit: Yes Qualifiers: Encounter type: sequela Qualified Code(s): S40.812S - Abrasion of left upper arm, sequela (2) Abrasion of right upper extremity SNOMED Code(s): 997597031 ICD Code: S40.811A - ABRASION OF RIGHT UPPER ARM, INITIAL ENCOUNTER Status : Acute Priority: High Current Visit: Yes Qualifiers: Encounter type: sequela Qualified Code(s): S40.811S - Abrasion of right upper arm, sequela (3) Edema, peripheral SNOMED Code(s): 736879562 ICD Code: R60.9 - EDEMA, UNSPECIFIED Status: Chronic Priority: High Current Visit: Yes (4) Laceration of leg, right SNOMED Code(s): 771032256 ICD Code: S81.811A - LACERATION W/O FOREIGN BODY, RIGHT LOWER LEG, INIT ENCNTR Status: Acute Priority: High Current Visit: Yes Onset Date: ~ Qualifiers: Encounter type: sequela Qualified Code(s): S81.811S - Laceration without foreign body, right lower leg, sequela (5) Redness of skin SNOMED Code(s): 09642513 ICD Code: L53.9 - ERYTHEMATOUS CONDITION, UNSPECIFIED Status: Acute Priority: High Current Visit: Yes (6) Wound dehiscence SNOMED Code(s): 902948574 ICD Code: T81.30XA - DISRUPTION OF WOUND, UNSPECIFIED, INITIAL ENCOUNTER Status: Acute Current Visit: Yes - Patient Summary/Data Consults: Consultations 11/27/17 16:51 Consult to Occupational Therapy [OT Evaluation and Treatment] [CONS] Routine Please Evaluate and Treat. OT Reason for Consult: ADL's This query below is only for informational purposes and is not editable. Admission Diagnosis/Problem: Wound PT Evaluation and Treatment [CONS] Routine Please Evaluate and Treat. PT Reason for Consult: Ambulation This query below is only for informational purposes and is not editable. Admission Diagnosis/Problem: Wound - Patient Instructions Diet: Regular Diet as Tolerated - Discharge Plan Home Medications: Home Meds Acetaminophen [Tylenol Arthritis] 650 mg PO BID 01/12/17 [History] Aspirin [Lakisha Chewable] 81 mg PO DAILY 01/12/17 [History] Budesonide/Formoterol [Symbicort 160-4.5 MCG] 2 puff INH BID 01/12/17 [History] Dabigatran Etexilate Mesylate [Pradaxa] 150 mg PO BID 01/12/17 [History] Docusate Sodium [Colace] 100 mg PO DAILY 01/12/17 [History] Levothyroxine 125 mcg PO ACBREAKFAST 01/12/17 [History] Losartan [Cozaar] 25 mg PO DAILY 01/12/17 [History] Multivitamin with Iron [Multivitamins with Iron] 1 each PO DAILY 01/12/17 [ History] Spironolactone [Aldactone] 25 mg PO DAILY 01/12/17 [History] Terazosin [Hytrin] 5 mg PO DAILY 01/12/17 [History] Tiotropium [Spiriva Handihaler] 2 puff INH DAILY 01/12/17 [History] Torsemide 80 mg PO DAILY 01/12/17 [History] atorvaSTATin Calcium [Atorvastatin Calcium] 80 mg PO QPM 01/12/17 [History] - Patient Data Vitals - Most Recent: Last Vital Signs Temp 37.0 C 12/05/17 08:45 Pulse 65 12/05/17 08:45 Resp 20 12/05/17 08:45 BP 129/54 L 12/05/17 08:45 Pulse Ox 95 12/05/17 08:45 Weight - Most Recent: 103.561 kg Med Orders - Current: Current Medications Acetaminophen (Tylenol Arthritis Pain) 650 mg PO BID [facility] Last Admin: 12/05/17 08:24 Dose: 650 mg Hydrocodone Bitart/Acetaminophen ([place] 325-5 Mg) 1 tab PO Q4H PRN PRN Reason: Pain Amoxicillin/Clavulanate Potassium (Augmentin 875 Mg/125 Mg) 1 tab PO BID [facility] Last Admin: 12/05/17 08:25 Dose: 1 tab Aspirin (Aspirin) 81 mg PO DAILY [facility] Last Admin: 12/05/17 08:24 Dose: 81 mg Atorvastatin Calcium (Lipitor) 80 mg PO QPM [facility] Last Admin: 12/04/17 20:36 Dose: 80 mg Docusate Sodium (Colace) 100 mg PO DAILY [facility] Last Admin: 12/05/17 08:24 Dose: 100 mg Losartan Potassium (Cozaar) 25 mg PO DAILY [facility] Last Admin: 12/05/17 08:26 Dose: 25 mg Non-Formulary Medication (Budesonide/Formoterol [Symbicort 160-4.5 Mcg]) 2 puff INH BID [facility] Last Admin: 12/05/17 08:36 Dose: 2 puff Non-Formulary Medication (Dabigatran Etexilate Mesylate [Pradaxa]) 150 mg PO BID [facility] Last Admin: 12/05/17 08:30 Dose: 150 mg Non-Formulary Medication (Levothyroxine [Levothyroxine]) 125 mcg PO ACBREAKFAST [facility] Last Admin: 12/05/17 07:22 Dose: 125 mcg Non-Formulary Medication (Multivitamin With Iron [Multivitamins With Iron]) 1 each PO DAILY [facility] Last Admin: 12/05/17 08:40 Dose: 1 each Non-Formulary Medication (Terazosin [Hytrin]) 5 mg PO DAILY [facility] Last Admin: 12/05/17 08:34 Dose: 5 mg Sprivia Respimat 1 each INH DAILY [facility] Last Admin: 12/05/17 08:36 Dose: 1 each Spironolactone (Aldactone) 25 mg PO DAILY [facility] Last Admin: 12/05/17 08:36 Dose: 25 mg Torsemide (Demadex) 80 mg PO DAILY [facility] Last Admin: 12/05/17 08:33 Dose: 80 mg Discontinued Medications Ceftriaxone Sodium (Rocephin) Confirm Administered Dose 1 gm .ROUTE .STK-MED ONE Stop: 12/02/17 11:17 Last Admin: 12/02/17 13:23 Dose: 1 gm Ceftriaxone Sodium (Rocephin) 1 gm IM ONETIME ONE Stop: 12/02/17 13:18 Last Admin: 12/02/17 17:42 Dose: Not Given Levothyroxine Sodium (Levothyroxine) Confirm Administered Dose 25 mcg .ROUTE .STK-MED ONE Stop: 11/29/17 09:11 Last Admin: 11/29/17 09:32 Dose: Not Given Levothyroxine Sodium (Synthroid) Confirm Administered Dose 100 mcg .ROUTE .STK- MED ONE Stop: 11/29/17 09:12 Last Admin: 11/29/17 09:32 Dose: Not Given Levothyroxine Sodium (Levothyroxine) Confirm Administered Dose 25 mcg .ROUTE .STK-MED ONE Stop: 11/30/17 07:52 Last Admin: 11/30/17 08:10 Dose: Not Given Levothyroxine Sodium (Synthroid) Confirm Administered Dose 100 mcg .ROUTE .STK- MED ONE Stop: 11/30/17 07:52 Last Admin: 11/30/17 08:10 Dose: Not Given Tramadol HCl (Ultram) 50 mg PO Q8H PRN PRN Reason: Pain Last Admin: 12/01/17 19:34 Dose: 50 mg
== END 2017-12-05 11:21 | disposition still patient (30) | DRG 863 ==
LOC: UNDOADMIN 15:10 → LB.MS 15:10
PROVIDERS: ADMIT Family Medicine; ATTEND Family Medicine
DX: T81.4XXA Infection following a procedure, initial encounter (principal); T81.31XA Disruption of external operation (surgical) wound, not elsewhere classified, initial encounter; Y83.8 Other surgical procedures as the cause of abnormal reaction of the patient, or of later complication, without mention of misadventure at the time of the procedure; S40.812A Abrasion of left upper arm, initial encounter; S40.811A Abrasion of right upper arm, initial encounter; L08.9 Local infection of the skin and subcutaneous tissue, unspecified; R60.0 Localized edema; E78.00 Pure hypercholesterolemia, unspecified; I10 Essential (primary) hypertension; J44.9 Chronic obstructive pulmonary disease, unspecified; Q63.1 Lobulated, fused and horseshoe kidney; M19.90 Unspecified osteoarthritis, unspecified site; E03.9 Hypothyroidism, unspecified; Z79.899 Other long term (current) drug therapy; Z79.82 Long term (current) use of aspirin; Z95.1 Presence of aortocoronary bypass graft; Z95.2 Presence of prosthetic heart valve; Z95.0 Presence of cardiac pacemaker; Z90.49 Acquired absence of other specified parts of digestive tract; Z96.659 Presence of unspecified artificial knee joint; Z91.81 History of falling
CPT/HCPCS: A9270-GY; J0696

== ENCOUNTER 2017-12-05 11:20 | Inpatient (IN) | payer MEDICARE, BC ==
--- NOTE | 2017-12-05 12:08 | PCM.HP ---
H&P History of Present Illness - General Date of Service: 12/05/17 Admit Problem/Dx: Admission Diagnosis/Problem Admission Diagnosis/Problem Wound dehiscence Source of Information: Patient History Limitations: Reports: No Limitations - History of Present Illness Initial Comments - Free Text/Narative: This is an 82yo M placed in observation for a wound dehiscence of the right knee. Patient had recently had sutures removed without complications and a few hours later when he was getting out of bed with the immobilizer the staff noticed bleeding and the wound had dehisced. Patient denies any injury or other changes. Onset of Symptoms: Reports: Sudden Duration of Symptoms: Reports: Minutes: Location: Reports: Lower Extremity, Right Severity: Moderate Improves with: Reports: Immobilization Worsens with: Reports: Movement - Related Data Allergies/Adverse Reactions: Allergies Allergy/AdvReac Type Severity Reaction Status Date / Time No Known Allergies Allergy Verified 01/12/17 15:42 Home Medications: Home Meds Acetaminophen [Tylenol Arthritis] 650 mg PO BID 01/12/17 [History] Aspirin [Lakisha Chewable] 81 mg PO DAILY 01/12/17 [History] Budesonide/Formoterol [Symbicort 160-4.5 MCG] 2 puff INH BID 01/12/17 [History] Dabigatran Etexilate Mesylate [Pradaxa] 150 mg PO BID 01/12/17 [History] Docusate Sodium [Colace] 100 mg PO DAILY 01/12/17 [History] Levothyroxine 125 mcg PO ACBREAKFAST 01/12/17 [History] Losartan [Cozaar] 25 mg PO DAILY 01/12/17 [History] Multivitamin with Iron [Multivitamins with Iron] 1 each PO DAILY 01/12/17 [ History] Spironolactone [Aldactone] 25 mg PO DAILY 01/12/17 [History] Terazosin [Hytrin] 5 mg PO DAILY 01/12/17 [History] Tiotropium [Spiriva Handihaler] 2 puff INH DAILY 01/12/17 [History] Torsemide 80 mg PO DAILY 01/12/17 [History] atorvaSTATin Calcium [Atorvastatin Calcium] 80 mg PO QPM 01/12/17 [History] Past Medical History HEENT History: Reports: None Cardiovascular History: Reports: Heart Valve Replacement, High Cholesterol, Hypertension Respiratory History: Reports: COPD Gastrointestinal History: Reports: None Genitourinary History: Reports: Other (See Below) Other Genitourinary History: horseshoe kidney Musculoskeletal History: Reports: Arthritis Endocrine/Metabolic History: Reports: Hypothyroidism Dermatologic History: Reports: Cellulitis - Infectious Disease History Infectious Disease History: Reports: Chicken Pox - Past Surgical History HEENT Surgical History: Reports: Tonsillectomy Cardiovascular Surgical History: Reports: Coronary Artery Bypass, Pacer, Valve Replacement Respiratory Surgical History: Reports: None GI Surgical History: Reports: Cholecystectomy, Hernia Repair/Other Male Surgical History: Reports: None Musculoskeletal Surgical History: Reports: Knee Replacement Social & Family History - Family History Family Medical History: Noncontributory - Caffeine Use Caffeine Use: Reports: Coffee H&P Review of Systems - Review of Systems: Review Of Systems: ROS reveals no pertinent complaints other than HPI. Exam - Exam Exam: See Below - Exam General: Alert, Oriented HEENT: PERRLA, Conjunctiva Clear, EACs Clear Neck: Supple, Trachea Midline Lungs: Clear to Auscultation, Normal Respiratory Effort Cardiovascular: Regular Rate, Regular Rhythm Back Exam: Normal Inspection Extremities: Normal Inspection Skin: Wound, Other (multiple wounds needing care, right elbow, left forearm and elbow, right knee, right hand 5th knuckle) Neurological: Cranial Nerves Intact Neuro Extensive - Mental Status: Alert, Oriented x3, Normal Mood/Affect - Problem List (1) Weakness SNOMED Code(s): 61390992 ICD Code: R53.1 - WEAKNESS Status: Chronic Priority: High Current Visit : Yes (2) Abrasion of left upper extremity SNOMED Code(s): 317995630 ICD Code: S40.812A - ABRASION OF LEFT UPPER ARM, INITIAL ENCOUNTER Status: Acute Priority: High Current Visit: Yes Qualifiers: (3) Abrasion of right upper extremity SNOMED Code(s): 655579519 ICD Code: S40.811A - ABRASION OF RIGHT UPPER ARM, INITIAL ENCOUNTER Status : Acute Priority: High Current Visit: Yes Qualifiers: (4) Laceration of leg, right SNOMED Code(s): 665941334 ICD Code: S81.811A - LACERATION W/O FOREIGN BODY, RIGHT LOWER LEG, INIT ENCNTR Status: Acute Priority: High Current Visit: Yes Onset Date: ~ Qualifiers: (5) Redness of skin SNOMED Code(s): 25048623 ICD Code: L53.9 - ERYTHEMATOUS CONDITION, UNSPECIFIED Status: Acute Priority: High Current Visit: Yes (6) Wound dehiscence SNOMED Code(s): 428014322 ICD Code: T81.30XA - DISRUPTION OF WOUND, UNSPECIFIED, INITIAL ENCOUNTER Status: Acute Priority: High Current Visit: Yes (7) Edema, peripheral SNOMED Code(s): 891106785 ICD Code: R60.9 - EDEMA, UNSPECIFIED Status: Chronic Priority: High Current Visit: Yes (8) Pain management SNOMED Code(s): 114704149 ICD Code: R52 - PAIN, UNSPECIFIED Status: Acute Priority: High Current Visit: Yes Problem List Initiated/Reviewed/Updated: Yes Orders Last 24hrs: Active Orders 24 hr Category Date Time Status Patient Status [ADT] Routine ADT 12/05/17 11:43 Active Vital Signs [RC] Q4H Care 12/05/17 11:59 Active Consult to Physical Therapy [PT Evaluation and Cons 12/05/17 12:00 Active Treatment] [CONS] Routine OT Evaluation and Treatment [CONS] Routine Cons 12/05/17 11:59 Active PT Evaluation and Treatment [CONS] Routine Cons 12/05/17 11:59 Active Regular Diet [DIET] Diet 12/05/17 Dinner Ordered Acetaminophen [Tylenol Arthritis] Med 12/05/17 20:00 Ordered 650 mg PO BID Aspirin [Lakisha Chewable Aspirin] Med 12/06/17 08:00 Ordered 81 mg PO DAILY Budesonide/Formoterol [Symbicort 160-4.5 MCG] Med 12/05/17 20:00 Ordered 2 puff INH BID Dabigatran Etexilate Mesylate [Pradaxa] Med 12/05/17 20:00 Ordered 150 mg PO BID Docusate Sodium [Colace] Med 12/06/17 08:00 Ordered 100 mg PO DAILY Levothyroxine [Levothyroxine] Med 12/06/17 07:00 Ordered 125 mcg PO ACBREAKFAST Losartan [Cozaar] Med 12/06/17 08:00 Ordered 25 mg PO DAILY Multivitamin with Iron [Multivitamins with Iron] Med 12/06/17 08:00 Ordered 1 each PO DAILY Spironolactone [Aldactone] Med 12/06/17 08:00 Ordered 25 mg PO DAILY Terazosin [Hytrin] Med 12/06/17 08:00 Ordered 5 mg PO DAILY Tiotropium [Spiriva Handihaler] Med 12/06/17 08:00 Ordered 2 puff INH DAILY Torsemide [Torsemide] Med 12/06/17 08:00 Ordered 80 mg PO DAILY atorvaSTATin Calcium [Atorvastatin Calcium] Med 12/05/17 20:00 Ordered 80 mg PO QPM Medication Orders Non-Formulary Medication (Acetaminophen [Tylenol Arthritis]) 650 mg PO BID [facility] Non-Formulary Medication (Aspirin [Lakisha Chewable Aspirin]) 81 mg PO DAILY [facility] Non-Formulary Medication (Atorvastatin Calcium [Atorvastatin Calcium]) 80 mg PO QPM [facility] Non-Formulary Medication (Budesonide/Formoterol [Symbicort 160-4.5 Mcg]) 2 puff INH BID [facility] Non-Formulary Medication (Dabigatran Etexilate Mesylate [Pradaxa]) 150 mg PO BID [facility] Non-Formulary Medication (Docusate Sodium [Colace]) 100 mg PO DAILY [facility] Non-Formulary Medication (Levothyroxine [Levothyroxine]) 125 mcg PO ACBREAKFAST [facility] Non-Formulary Medication (Losartan [Cozaar]) 25 mg PO DAILY [facility] Non-Formulary Medication (Multivitamin With Iron [Multivitamins With Iron]) 1 each PO DAILY [facility] Non-Formulary Medication (Spironolactone [Aldactone]) 25 mg PO DAILY [facility] Non-Formulary Medication (Terazosin [Hytrin]) 5 mg PO DAILY [facility] Non-Formulary Medication (Tiotropium [Spiriva Handihaler]) 2 puff INH DAILY [facility] Non-Formulary Medication (Torsemide [Torsemide]) 80 mg PO DAILY [facility] Assessment/Plan Comment:: Patient placed in observation to monitor wound. Wound was revised and 6 silk 2- 0 simple sutures placed. We will continue wound care follow up for all wounds. Continue PT/OT for strengthening and balance as patient has had multiple recent falls this past 1-2 months causing injuries and skin wounds. - Free Text/Narrative Note: Right knee prepped sterilely. 1% lidcaine with epi used with a 27ga needle to numb area - 5mL used. Revision of flaps for viable tissue with iris. 2-0 silk simple interrupted sutures x6 used to close dehiscence. No complications. Bacitracin ointment used and close monitoring to continue.
[2017-12-05] MEDS ORDERED: Non-Formulary Medication 1 Each (Atorvastatin Calcium [Atorvastatin Calcium] 80 MG) PO SCH (20:00)
[2017-12-05] MEDS: Non-Formulary Medication 1 Each (Acetaminophen [Tylenol Arthritis] 650 MG) PO SCH (21:25)
[2017-12-05] MEDS: Non-Formulary Medication 1 Each (Budesonide/Formoterol [Symbicort 160-4.5 Mcg] 2 PUFF) INH SCH (21:25)
[2017-12-05] MEDS: DABIGATRAN ETEXILATE MESYLATE 150 MG PO SCH (21:26)
[2017-12-06] MEDS ORDERED: Non-Formulary Medication 1 Each (Levothyroxine [Levothyroxine] 125 MCG) PO SCH (07:00)
[2017-12-06] MEDS ORDERED: Non-Formulary Medication 1 Each (Losartan [Cozaar] 25 MG) PO SCH (08:00)
[2017-12-06] MEDS ORDERED: [UNRECOGNIZED DRUG - OTHER] PO SCH (08:00)
[2017-12-06] MEDS ORDERED: Non-Formulary Medication 1 Each (Aspirin [Bayer Chewable Aspirin] 81 MG) PO SCH (08:00)
[2017-12-06] MEDS ORDERED: Non-Formulary Medication 1 Each (Spironolactone [Aldactone] 25 MG) PO SCH (08:00)
[2017-12-06] MEDS ORDERED: Non-Formulary Medication 1 Each (Docusate Sodium [Colace] 100 MG) PO SCH (08:00)
[2017-12-06] MEDS ORDERED: Non-Formulary Medication 1 Each (Tiotropium [Spiriva Handihaler] 2 PUFF) INH SCH (08:00)
[2017-12-06] MEDS ORDERED: MULTIVITAMIN WITH IRON PO SCH (08:00)
[2017-12-06] MEDS ORDERED: TERAZOSIN 5 MG PO SCH (08:00)
[2017-12-06] MEDS ORDERED: TORSEMIDE PO SCH (08:00)
[2017-12-06] MEDS: Non-Formulary Medication 1 Each (Acetaminophen [Tylenol Arthritis] 650 MG) PO SCH (08:43)
[2017-12-06] MEDS: Non-Formulary Medication 1 Each (Budesonide/Formoterol [Symbicort 160-4.5 Mcg] 2 PUFF) INH SCH (08:44)
[2017-12-06] MEDS: DABIGATRAN ETEXILATE MESYLATE 150 MG PO SCH ×2 (08:46→20:38)
--- NOTE | 2017-12-06 11:20 | PCM.PN ---
- General Info Date of Service: 12/06/17 Subjective Update: Patient has been improving slightly. He remains very weak with a poor gait and balance. His wounds are healing with some drainage. Functional Status: Reports: Pain Controlled, Tolerating Diet, Ambulating - Review of Systems General: Reports: Weakness HEENT: Reports: No Symptoms Pulmonary: Reports: No Symptoms Cardiovascular: Reports: No Symptoms Gastrointestinal: Reports: No Symptoms Genitourinary: Reports: No Symptoms Musculoskeletal: Reports: Leg Pain Skin: Reports: Other (Wound) Neurological: Reports: No Symptoms Psychiatric: Reports: No Symptoms - Patient Data Vitals - Most Recent: Last Vital Signs Temp 36.9 C 12/06/17 07:00 Pulse 63 12/06/17 07:00 Resp 17 12/06/17 07:00 BP 147/54 H 12/06/17 07:00 Pulse Ox 97 12/06/17 07:00 Weight - Most Recent: 103.419 kg Med Orders - Current: Current Medications Ceftriaxone Sodium 1 gm/ (Sodium Chloride) 50 mls @ 200 mls/hr IV Q24H [facility] Non-Formulary Medication (Acetaminophen [Tylenol Arthritis]) 650 mg PO BID [facility] Last Admin: 12/06/17 08:43 Dose: 650 mg Non-Formulary Medication (Aspirin [Lakisha Chewable Aspirin]) 81 mg PO DAILY [facility] Last Admin: 12/06/17 08:44 Dose: 81 mg Non-Formulary Medication (Atorvastatin Calcium [Atorvastatin Calcium]) 80 mg PO QPM [facility] Last Admin: 12/05/17 21:25 Dose: 80 mg Non-Formulary Medication (Budesonide/Formoterol [Symbicort 160-4.5 Mcg]) 2 puff INH BID [facility] Last Admin: 12/06/17 08:44 Dose: 2 puff Non-Formulary Medication (Dabigatran Etexilate Mesylate [Pradaxa]) 150 mg PO BID [facility] Last Admin: 12/06/17 08:46 Dose: 150 mg Non-Formulary Medication (Docusate Sodium [Colace]) 100 mg PO DAILY [facility] Last Admin: 12/06/17 08:51 Dose: 100 mg Non-Formulary Medication (Levothyroxine [Levothyroxine]) 125 mcg PO ACBREAKFAST [facility] Last Admin: 12/06/17 06:41 Dose: 125 mcg Non-Formulary Medication (Losartan [Cozaar]) 25 mg PO DAILY [facility] Last Admin: 12/06/17 08:48 Dose: 25 mg Non-Formulary Medication (Multivitamin With Iron [Multivitamins With Iron]) 1 each PO DAILY [facility] Last Admin: 12/06/17 08:51 Dose: 1 each Non-Formulary Medication (Spironolactone [Aldactone]) 25 mg PO DAILY [facility] Last Admin: 12/06/17 08:49 Dose: 25 mg Non-Formulary Medication (Terazosin [Hytrin]) 5 mg PO DAILY [facility] Last Admin: 12/06/17 08:50 Dose: 5 mg Non-Formulary Medication (Tiotropium [Spiriva Handihaler]) 2 puff INH DAILY [facility] Last Admin: 12/06/17 08:50 Dose: 2 puff Non-Formulary Medication (Torsemide [Torsemide]) 80 mg PO DAILY [facility] Last Admin: 12/06/17 08:50 Dose: 80 mg - Exam General: Alert, Oriented, Cooperative HEENT: Pupils Equal, Pupils Reactive, EOMI Neck: Supple Lungs: Clear to Auscultation, Normal Respiratory Effort Cardiovascular: Regular Rate, Regular Rhythm Back Exam: Normal Inspection Peripheral Pulses: 2+: Dorsalis Pedis (L), Dorsalis Pedis (R) Skin: Warm, Dry, Intact, Other (wound right knee 5cm in length) Neurological: No New Focal Deficit Psy/Mental Status: Alert, Normal Affect, Normal Mood - Problem List & Annotations (1) Abrasion of left upper extremity SNOMED Code(s): 620962104 Code(s): S40.812A - ABRASION OF LEFT UPPER ARM, INITIAL ENCOUNTER Status: Acute Priority: High Qualifiers: (2) Abrasion of right upper extremity SNOMED Code(s): 943499084 Code(s): S40.811A - ABRASION OF RIGHT UPPER ARM, INITIAL ENCOUNTER Status: Acute Priority: High Qualifiers: (3) Laceration of leg, right SNOMED Code(s): 576860048 Code(s): S81.811A - LACERATION W/O FOREIGN BODY, RIGHT LOWER LEG, INIT ENCNTR Status: Acute Priority: High Onset Date: ~11/05/17 Qualifiers: (4) Redness of skin SNOMED Code(s): 79453902 Code(s): L53.9 - ERYTHEMATOUS CONDITION, UNSPECIFIED Status: Acute Priority: High (5) Wound dehiscence SNOMED Code(s): 092098204 Code(s): T81.30XA - DISRUPTION OF WOUND, UNSPECIFIED, INITIAL ENCOUNTER Status: Acute Priority: High (6) Edema, peripheral SNOMED Code(s): 993428251 Code(s): R60.9 - EDEMA, UNSPECIFIED Status: Chronic Priority: High (7) Pain management SNOMED Code(s): 549691404 Code(s): R52 - PAIN, UNSPECIFIED Status: Acute Priority: High - Problem List Review Problem List Initiated/Reviewed/Updated: Yes - My Orders Last 24 Hours: My Active Orders 12/05/17 11:43 Patient Status [ADT] Routine 12/05/17 11:59 Vital Signs [RC] Q4H OT Evaluation and Treatment [CONS] Routine PT Evaluation and Treatment [CONS] Routine 12/05/17 12:00 Consult to Physical Therapy [PT Evaluation and Treatment] [CONS] Routine 12/05/17 20:00 Acetaminophen [Tylenol Arthritis] 650 mg PO BID Budesonide/Formoterol [Symbicort 160-4.5 MCG] 2 puff INH BID Dabigatran Etexilate Mesylate [Pradaxa] 150 mg PO BID atorvaSTATin Calcium [Atorvastatin Calcium] 80 mg PO QPM 12/06/17 07:00 Levothyroxine [Levothyroxine] 125 mcg PO ACBREAKFAST 12/06/17 08:00 Aspirin [Lakisha Chewable Aspirin] 81 mg PO DAILY Docusate Sodium [Colace] 100 mg PO DAILY Losartan [Cozaar] 25 mg PO DAILY Multivitamin with Iron [Multivitamins with Iron] 1 each PO DAILY Spironolactone [Aldactone] 25 mg PO DAILY Terazosin [Hytrin] 5 mg PO DAILY Tiotropium [Spiriva Handihaler] 2 puff INH DAILY Torsemide [Torsemide] 80 mg PO DAILY 12/06/17 10:51 Patient Status [ADT] Routine Vital Signs [RC] Q4H 12/06/17 11:00 cefTRIAXone [Rocephin] 1 gm Sodium Chloride 0.9% [Normal Saline] 50 ml IV Q24H 12/06/17 Breakfast Heart Healthy Diet [DIET] - Plan Plan:: Patient placed in observation to monitor wound. Wound was revised and 6 silk 2- 0 simple sutures placed. We will continue wound care follow up for all wounds. Continue PT/OT for strengthening and balance as patient has had multiple recent falls this past 1-2 months causing injuries and skin wounds. 12/06/17 Admitted to inpatient to inpatient care for cellulitis of the right knee. We will continue current cares for wound care and PT/OT.
[2017-12-06] MEDS: cefTRIAXone 1 GM in Sodium Chloride 0.9% 50 ML IV SCH (13:30)
[2017-12-06] MEDS: Sodium Chloride 0.9% 1,000 ML IV SCH (14:09)
[2017-12-06] MEDS: Formoterol/Mometasone 200-5 MCG 8.8 GM Inhaler IH SCH (20:00)
[2017-12-06] MEDS: atorvaSTATin 80 MG Tab PO SCH (20:39)
[2017-12-06] MEDS: Acetaminophen 650 MG Tab.ER PO SCH (20:40)
[2017-12-07] MEDS: Sodium Chloride 0.9% 1,000 ML IV SCH (02:42)
[2017-12-07] MEDS: Levothyroxine 50 MCG Tab PO SCH (06:30)
[2017-12-07] MEDS: Ipratropium 0.02% 0.5 MG/2.5 ML Neb Soln INH SCH ×3 (06:35→18:37)
[2017-12-07] MEDS: Terazosin 1 MG Cap PO SCH (07:44)
[2017-12-07] MEDS: Torsemide 20 MG Tab PO SCH (07:46)
[2017-12-07] MEDS: Docusate Sodium 100 MG Cap PO SCH (07:48)
[2017-12-07] MEDS: Acetaminophen 650 MG Tab.ER PO SCH ×2 (07:49→19:40)
[2017-12-07] MEDS: Multivitamins with Iron/Calcium/Folic Acid/Minerals Tab PO SCH (07:49)
[2017-12-07] MEDS: Aspirin 81 MG Tab.Chew PO SCH (07:49)
[2017-12-07] MEDS: Spironolactone 25 MG Tab PO SCH (07:51)
[2017-12-07] MEDS: Losartan 25 MG Tab PO SCH (07:51)
[2017-12-07] MEDS: DABIGATRAN ETEXILATE MESYLATE 150 MG PO SCH ×2 (07:52→19:40)
[2017-12-07] MEDS: Formoterol/Mometasone 200-5 MCG 8.8 GM Inhaler IH SCH ×2 (07:54→19:17)
[2017-12-07] MEDS ORDERED: cefTRIAXone 1 GM Vial ONE (11:40)
[2017-12-07] MEDS: cefTRIAXone 1 GM in Sodium Chloride 0.9% 50 ML IV SCH (12:00)
--- NOTE | 2017-12-07 12:35 | PCM.PN ---
- General Info Date of Service: 12/07/17 Subjective Update: Pt claims he feels fine. He has been ambulating with the knee immobilizer. No fever or chills. Tolerating diet well. He is on recephin 1gm Im daily. No complaints from patient. Functional Status: Reports: Pain Controlled, Tolerating Diet, Ambulating, Urinating - Review of Systems General: Denies: Fever, Weakness, Fatigue HEENT: Denies: Sinus Congestion, Visual Changes Pulmonary: Denies: Cough, Sputum Cardiovascular: Denies: Chest Pain, Lightheadedness Genitourinary: Denies: Dysuria, Frequency Musculoskeletal: Denies: Joint Pain, Joint Swelling Skin: Reports: Bruising. Denies: Cyanosis, Jaundice Neurological: Denies: Confusion, Dizziness - Patient Data Vitals - Most Recent: Last Vital Signs Temp 98.3 F 12/07/17 07:00 Pulse 63 12/07/17 07:00 Resp 18 12/07/17 07:00 BP 148/68 H 12/07/17 07:51 Pulse Ox 90 L 12/07/17 07:00 Weight - Most Recent: 103.419 kg Lab Results Last 24 Hours: Laboratory Results - last 24 hr 12/06/17 12/07/17 Range/Units 12:00 10:55 WBC 9.4 (4.0-11.0) K/uL RBC 2.96 L (4.50-6.50) M/uL Hgb 9.0 L (13.0-18.0) g/dL Hct 29.1 L (40.0-54.0) % MCV 98 H (76-96) fL MCH 30.4 (27.0-32.0) pg MCHC 30.9 L (31.0-35.0) g/dL RDW 15.5 (11.0-16.0) % Plt Count 192 (150-400) K/uL MPV 9.0 (6.0-10.0) fL Neut % (Auto) 78.7 H (45.0-70.0) % Lymph % (Auto) 12.1 L (20.0-40.0) % [place] % (Auto) 7.7 (3.0-10.0) % Eos % (Auto) 1.2 (1.0-5.0) % Baso % (Auto) 0.3 (0.0-0.5) % Neut # (Auto) 7.41 (2.00-7.50) K/uL Lymph # (Auto) 1.14 L (1.50-4.00) K/uL [place] # (Auto) 0.72 (0.20-0.80) K/uL Eos # (Auto) 0.11 (0.04-0.40) K/uL Baso # (Auto) 0.03 (0.02-0.10) K/uL Sodium 140 (136-145) mmol/L Potassium 3.8 (3.5-5.1) mmol/L Chloride 103 (98-107) mmol/L Carbon Dioxide 31.0 (21.0-32.0) mmol/L Anion Gap 9.8 (5.0-15.0) mmol/L BUN 36 H D (8-26) mg/dL Creatinine 1.18 D (0.70-1.30) mg/dL Est Cr Clr Drug Dosing 46.60 mL/min Estimated GFR (MDRD) 59 L (>60) MLS/MIN BUN/Creatinine Ratio 30.5 H (6-25) Glucose 137 H (74-100) mg/dL Calcium 8.8 (8.5-10.1) mg/dL Med Orders - Current: Current Medications Acetaminophen (Tylenol Arthritis Pain) 650 mg PO BID [facility] Last Admin: 12/07/17 07:49 Dose: 650 mg Aspirin (Aspirin) 81 mg PO DAILY [facility] Last Admin: 12/07/17 07:49 Dose: 81 mg Atorvastatin Calcium (Lipitor) 80 mg PO QPM [facility] Last Admin: 12/06/17 20:39 Dose: 80 mg Docusate Sodium (Colace) 100 mg PO DAILY [facility] Last Admin: 12/07/17 07:48 Dose: 100 mg Ceftriaxone Sodium 1 gm/ (Sodium Chloride) 50 mls @ 200 mls/hr IV Q24H [facility] Last Admin: 12/06/17 13:30 Dose: 200 mls/hr Sodium Chloride (Normal Saline) 1,000 mls @ 75 mls/hr IV ASDIRECTED [facility] Last Admin: 12/07/17 02:42 Dose: 75 mls/hr Ipratropium [place] (Atrovent) 0.5 mg INH Q6H [facility] Last Admin: 12/07/17 06:35 Dose: 0.5 mg Levothyroxine Sodium (Synthroid) 125 mcg PO ACBREAKFAST [facility] Last Admin: 12/07/17 06:30 Dose: 125 mcg Losartan Potassium (Cozaar) 25 mg PO DAILY [facility] Last Admin: 12/07/17 07:51 Dose: 25 mg Mometasone Furoate/Formoterol Fumar (Dulera 200-5 Mcg) 2 puff IH BID [facility] Last Admin: 12/07/17 07:54 Dose: Not Given Multivitamins/Minerals (Thera M Plus) 1 tab PO DAILY [facility] Last Admin: 12/07/17 07:49 Dose: 1 tab Non-Formulary Medication (Dabigatran Etexilate Mesylate [Pradaxa]) 150 mg PO BID [facility] Last Admin: 12/07/17 07:52 Dose: 150 mg Spironolactone (Aldactone) 25 mg PO DAILY [facility] Last Admin: 12/07/17 07:51 Dose: 25 mg Terazosin HCl (Hytrin) 5 mg PO DAILY [facility] Last Admin: 12/07/17 07:44 Dose: 5 mg Torsemide (Demadex) 80 mg PO DAILY [facility] Last Admin: 12/07/17 07:46 Dose: 80 mg Discontinued Medications Ceftriaxone Sodium (Rocephin) Confirm Administered Dose [address] .[facility] ONE Stop: 12/07/17 11:41 Non-Formulary Medication (Acetaminophen [Tylenol Arthritis]) 650 mg PO BID [facility] Last Admin: 12/06/17 08:43 Dose: 650 mg Non-Formulary Medication (Aspirin [Lakisha Chewable Aspirin]) 81 mg PO DAILY [facility] Last Admin: 12/06/17 08:44 Dose: 81 mg Non-Formulary Medication (Atorvastatin Calcium [Atorvastatin Calcium]) 80 mg PO QPM [facility] Last Admin: 12/05/17 21:25 Dose: 80 mg Non-Formulary Medication (Budesonide/Formoterol [Symbicort 160-4.5 Mcg]) 2 puff INH BID [facility] Last Admin: 12/06/17 08:44 Dose: 2 puff Non-Formulary Medication (Docusate Sodium [Colace]) 100 mg PO DAILY [facility] Last Admin: 12/06/17 08:51 Dose: 100 mg Non-Formulary Medication (Levothyroxine [Levothyroxine]) 125 mcg PO ACBREAKFAST [facility] Last Admin: 12/06/17 06:41 Dose: 125 mcg Non-Formulary Medication (Losartan [Cozaar]) 25 mg PO DAILY [facility] Last Admin: 12/06/17 08:48 Dose: 25 mg Non-Formulary Medication (Multivitamin With Iron [Multivitamins With Iron]) 1 each PO DAILY [facility] Last Admin: 12/06/17 08:51 Dose: 1 each Non-Formulary Medication (Spironolactone [Aldactone]) 25 mg PO DAILY [facility] Last Admin: 12/06/17 08:49 Dose: 25 mg Non-Formulary Medication (Terazosin [Hytrin]) 5 mg PO DAILY [facility] Last Admin: 12/06/17 08:50 Dose: 5 mg Non-Formulary Medication (Tiotropium [Spiriva Handihaler]) 2 puff INH DAILY [facility] Last Admin: 12/06/17 08:50 Dose: 2 puff Non-Formulary Medication (Torsemide [Torsemide]) 80 mg PO DAILY [facility] Last Admin: 12/06/17 08:50 Dose: 80 mg - Exam General: Alert, Oriented HEENT: Pupils Equal, Pupils Reactive, EOMI, Mucous Membr. Moist/[place] Neck: Supple Lungs: Clear to Auscultation, Normal Respiratory Effort Cardiovascular: Regular Rate, Regular Rhythm Extremities: Other (Right Knee: there is a scabbing sutured wound over the anterior aspect of the knee approximately 5 cms long. Minimal serous drainage over the dressing.There is tissue edema around the wound, but no erythema. minimal tenderness along the wound line.) - Problem List & Annotations (1) Wound dehiscence SNOMED Code(s): 027513689 Code(s): T81.30XA - DISRUPTION OF WOUND, UNSPECIFIED, INITIAL ENCOUNTER Status: Acute Priority: High Current Visit: Yes - Problem List Review Problem List Initiated/Reviewed/Updated: Yes - Assessment Assessment:: Right knee wound dehiscence with resuturing, will early cellulitis. - Plan Plan:: Patient placed in observation to monitor wound. Wound was revised and 6 silk 2- 0 simple sutures placed. We will continue wound care follow up for all wounds. Continue PT/OT for strengthening and balance as patient has had multiple recent falls this past 1-2 months causing injuries and skin wounds. 12/06/17 Admitted to inpatient to inpatient care for cellulitis of the right knee. 12/07/17 The wound over right knee does appear clean there is no erythema that I see today. His CBC shows white count of 9.4. Have done simple dressing of the wound. Knee immobilizer reapplied. Pt is okay to weight bear as long as he has the immobilizer on. Continue present medication regime.
[2017-12-07] MEDS: atorvaSTATin 80 MG Tab PO SCH (19:40)
[2017-12-08] MEDS: Ipratropium 0.02% 0.5 MG/2.5 ML Neb Soln INH SCH ×4 (01:02→19:17)
[2017-12-08] MEDS: Levothyroxine 50 MCG Tab PO SCH (07:00)
[2017-12-08] MEDS: Docusate Sodium 100 MG Cap PO SCH (07:37)
[2017-12-08] MEDS: Spironolactone 25 MG Tab PO SCH (07:37)
[2017-12-08] MEDS: Aspirin 81 MG Tab.Chew PO SCH (07:37)
[2017-12-08] MEDS: Losartan 25 MG Tab PO SCH (07:40)
[2017-12-08] MEDS: DABIGATRAN ETEXILATE MESYLATE 150 MG PO SCH ×2 (07:40→19:16)
[2017-12-08] MEDS: Torsemide 20 MG Tab PO SCH (07:41)
[2017-12-08] MEDS: Formoterol/Mometasone 200-5 MCG 8.8 GM Inhaler IH SCH ×2 (07:42→19:18)
[2017-12-08] MEDS: Terazosin 1 MG Cap PO SCH (07:45)
[2017-12-08] MEDS: Multivitamins with Iron/Calcium/Folic Acid/Minerals Tab PO SCH (07:47)
[2017-12-08] MEDS: Acetaminophen 650 MG Tab.ER PO SCH ×2 (07:47→19:17)
--- NOTE | 2017-12-08 10:18 | PCM.PN ---
- General Info Date of Service: 12/08/17 Subjective Update: Pt has been feeling fine. No pain in the right knee. There has been minimal bloody drainage from the wound. No fever or chills. Tolerating diet. No concerns from patient. Functional Status: Reports: Pain Controlled, Tolerating Diet, Ambulating, Urinating - Review of Systems General: Denies: Fever, Weakness HEENT: Denies: Sore Throat, Visual Changes Pulmonary: Denies: Cough, Sputum Cardiovascular: Denies: Chest Pain, Lightheadedness Gastrointestinal: Denies: Abdominal Pain, Nausea, Vomiting Genitourinary: Denies: Dysuria Skin: Denies: Cyanosis, Jaundice, Bruising - Patient Data Vitals - Most Recent: Last Vital Signs Temp 98.3 F 12/07/17 07:00 Pulse 63 12/07/17 07:00 Resp 18 12/07/17 07:00 BP 154/55 H 12/08/17 07:45 Pulse Ox 90 L 12/07/17 07:00 Weight - Most Recent: 103.419 kg I&O - Last 24 Hours: Intake & Output 12/07/17 12/08/17 12/08/17 22:59 06:59 14:59 Intake Total 1300 Output Total 1200 Balance 100 Lab Results Last 24 Hours: Laboratory Results - last 24 hr 12/07/17 Range/Units 10:55 WBC 9.4 (4.0-11.0) K/uL RBC 2.96 L (4.50-6.50) M/uL Hgb 9.0 L (13.0-18.0) g/dL Hct 29.1 L (40.0-54.0) % MCV 98 H (76-96) fL MCH 30.4 (27.0-32.0) pg MCHC 30.9 L (31.0-35.0) g/dL RDW 15.5 (11.0-16.0) % Plt Count 192 (150-400) K/uL MPV 9.0 (6.0-10.0) fL Neut % (Auto) 78.7 H (45.0-70.0) % Lymph % (Auto) 12.1 L (20.0-40.0) % [place] % (Auto) 7.7 (3.0-10.0) % Eos % (Auto) 1.2 (1.0-5.0) % Baso % (Auto) 0.3 (0.0-0.5) % Neut # (Auto) 7.41 (2.00-7.50) K/uL Lymph # (Auto) 1.14 L (1.50-4.00) K/uL [place] # (Auto) 0.72 (0.20-0.80) K/uL Eos # (Auto) 0.11 (0.04-0.40) K/uL Baso # (Auto) 0.03 (0.02-0.10) K/uL Med Orders - Current: Current Medications Acetaminophen (Tylenol Arthritis Pain) 650 mg PO BID [facility] Last Admin: 12/08/17 07:47 Dose: 650 mg Aspirin (Aspirin) 81 mg PO DAILY [facility] Last Admin: 12/08/17 07:37 Dose: 81 mg Atorvastatin Calcium (Lipitor) 80 mg PO QPM [facility] Last Admin: 12/07/17 19:40 Dose: 80 mg Docusate Sodium (Colace) 100 mg PO DAILY [facility] Last Admin: 12/08/17 07:37 Dose: 100 mg Ceftriaxone Sodium 1 gm/ (Sodium Chloride) 50 mls @ 200 mls/hr IV Q24H [facility] Last Admin: 12/07/17 12:00 Dose: 200 mls/hr Sodium Chloride (Normal Saline) 1,000 mls @ 75 mls/hr IV ASDIRECTED [facility] Last Admin: 12/07/17 02:42 Dose: 75 mls/hr Ipratropium [place] (Atrovent) 0.5 mg INH Q6H [facility] Last Admin: 12/08/17 06:12 Dose: Not Given Levothyroxine Sodium (Synthroid) 125 mcg PO ACBREAKFAST [facility] Last Admin: 12/08/17 07:00 Dose: 125 mcg Losartan Potassium (Cozaar) 25 mg PO DAILY [facility] Last Admin: 12/08/17 07:40 Dose: 25 mg Mometasone Furoate/Formoterol Fumar (Dulera 200-5 Mcg) 2 puff IH BID [facility] Last Admin: 12/08/17 07:42 Dose: Not Given Multivitamins/Minerals (Thera M Plus) 1 tab PO DAILY [facility] Last Admin: 12/08/17 07:47 Dose: 1 tab Non-Formulary Medication (Dabigatran Etexilate Mesylate [Pradaxa]) 150 mg PO BID [facility] Last Admin: 12/08/17 07:40 Dose: 150 mg Spironolactone (Aldactone) 25 mg PO DAILY [facility] Last Admin: 12/08/17 07:37 Dose: 25 mg Terazosin HCl (Hytrin) 5 mg PO DAILY [facility] Last Admin: 12/08/17 07:45 Dose: 5 mg Torsemide (Demadex) 80 mg PO DAILY [facility] Last Admin: 12/08/17 07:41 Dose: 80 mg Discontinued Medications Ceftriaxone Sodium (Rocephin) Confirm Administered Dose 1 gm .ROUTE .[facility] ONE Stop: 12/07/17 11:41 Last Admin: 12/07/17 19:16 Dose: Not Given Non-Formulary Medication (Acetaminophen [Tylenol Arthritis]) 650 mg PO BID [facility] Last Admin: 12/06/17 08:43 Dose: 650 mg Non-Formulary Medication (Aspirin [Lakisha Chewable Aspirin]) 81 mg PO DAILY [facility] Last Admin: 12/06/17 08:44 Dose: 81 mg Non-Formulary Medication (Atorvastatin Calcium [Atorvastatin Calcium]) 80 mg PO QPM [facility] Last Admin: 12/05/17 21:25 Dose: 80 mg Non-Formulary Medication (Budesonide/Formoterol [Symbicort 160-4.5 Mcg]) 2 puff INH BID [facility] Last Admin: 12/06/17 08:44 Dose: 2 puff Non-Formulary Medication (Docusate Sodium [Colace]) 100 mg PO DAILY [facility] Last Admin: 12/06/17 08:51 Dose: 100 mg Non-Formulary Medication (Levothyroxine [Levothyroxine]) 125 mcg PO ACBREAKFAST [facility] Last Admin: 12/06/17 06:41 Dose: 125 mcg Non-Formulary Medication (Losartan [Cozaar]) 25 mg PO DAILY [facility] Last Admin: 12/06/17 08:48 Dose: 25 mg Non-Formulary Medication (Multivitamin With Iron [Multivitamins With Iron]) 1 each PO DAILY [facility] Last Admin: 12/06/17 08:51 Dose: 1 each Non-Formulary Medication (Spironolactone [Aldactone]) 25 mg PO DAILY [facility] Last Admin: 12/06/17 08:49 Dose: 25 mg Non-Formulary Medication (Terazosin [Hytrin]) 5 mg PO DAILY [facility] Last Admin: 12/06/17 08:50 Dose: 5 mg Non-Formulary Medication (Tiotropium [Spiriva Handihaler]) 2 puff INH DAILY [facility] Last Admin: 12/06/17 08:50 Dose: 2 puff Non-Formulary Medication (Torsemide [Torsemide]) 80 mg PO DAILY [facility] Last Admin: 12/06/17 08:50 Dose: 80 mg - Exam General: Alert, Oriented HEENT: Pupils Equal, Pupils Reactive, EOMI, Mucous Membr. Moist/[place] Neck: Supple Lungs: Clear to Auscultation, Normal Respiratory Effort Cardiovascular: Regular Rate, Regular Rhythm Extremities: Other (right knee: there is a clean sutured wound over the knee 5cm long. there is very minimal erythema around the suture line. minimal skin edema around the wound. . tender to palpation minimally.) - Problem List & Annotations (1) Wound dehiscence SNOMED Code(s): 994713807 Code(s): T81.30XA - DISRUPTION OF WOUND, UNSPECIFIED, INITIAL ENCOUNTER Status: Acute Priority: High Current Visit: Yes - Problem List Review Problem List Initiated/Reviewed/Updated: Yes - Assessment Assessment:: Right knee wound dehiscence with resuturing. cellulitis resolving. - Plan Plan:: Patient placed in observation to monitor wound. Wound was revised and 6 silk 2- 0 simple sutures placed. We will continue wound care follow up for all wounds. Continue PT/OT for strengthening and balance as patient has had multiple recent falls this past 1-2 months causing injuries and skin wounds. 12/06/17 Admitted to inpatient to inpatient care for cellulitis of the right knee. 12/07/17 The wound over right knee does appear clean there is no erythema that I see today. His CBC shows white count of 9.4. Have done simple dressing of the wound. Knee immobilizer reapplied. Pt is okay to weight bear as long as he has the immobilizer on. Continue present medication regime. 12/08/17 Wound does seems to be healing well. Less erythema and drainage. simple dressing done. Advised to keep the wound open to air few times daily. Ambulation with knee brace on to prevent wound dehiscence. Continue rocephin.
[2017-12-08] MEDS: cefTRIAXone 1 GM in Sodium Chloride 0.9% 50 ML IV SCH (11:30)
[2017-12-08] MEDS: atorvaSTATin 80 MG Tab PO SCH (19:17)
[2017-12-09] MEDS: Ipratropium 0.02% 0.5 MG/2.5 ML Neb Soln INH SCH ×2 (01:17→06:34)
[2017-12-09] MEDS: Levothyroxine 50 MCG Tab PO SCH (08:11)
[2017-12-09] MEDS: Terazosin 1 MG Cap PO SCH (08:12)
[2017-12-09] MEDS: Aspirin 81 MG Tab.Chew PO SCH (08:12)
[2017-12-09] MEDS: Acetaminophen 650 MG Tab.ER PO SCH (08:12)
[2017-12-09] MEDS: Spironolactone 25 MG Tab PO SCH (08:13)
[2017-12-09] MEDS: Docusate Sodium 100 MG Cap PO SCH (08:13)
[2017-12-09] MEDS: Multivitamins with Iron/Calcium/Folic Acid/Minerals Tab PO SCH (08:13)
[2017-12-09] MEDS: Losartan 25 MG Tab PO SCH (08:14)
[2017-12-09] MEDS: DABIGATRAN ETEXILATE MESYLATE 150 MG PO SCH (08:15)
[2017-12-09] MEDS: Formoterol/Mometasone 200-5 MCG 8.8 GM Inhaler IH SCH (08:16)
[2017-12-09] MEDS: Torsemide 20 MG Tab PO SCH (08:16)
[2017-12-09] MEDS: cefTRIAXone 1 GM in Sodium Chloride 0.9% 50 ML IV SCH (11:13)
--- NOTE | 2017-12-09 16:16 | PCM.DCSUM1 ---
Discharge Summary - Discharge Data Discharge Date: 12/09/17 Discharge Disposition: DC/Tfer W/I Hosp To Swing 61 Condition: Good - Discharge Diagnosis/Problem(s) (1) Abrasion of left upper extremity SNOMED Code(s): 163014078 ICD Code: S40.812A - ABRASION OF LEFT UPPER ARM, INITIAL ENCOUNTER Status: Acute Priority: High Current Visit: Yes Qualifiers: (2) Abrasion of right upper extremity SNOMED Code(s): 409316491 ICD Code: S40.811A - ABRASION OF RIGHT UPPER ARM, INITIAL ENCOUNTER Status : Acute Priority: High Current Visit: Yes Qualifiers: (3) Laceration of leg, right SNOMED Code(s): 521486988 ICD Code: S81.811A - LACERATION W/O FOREIGN BODY, RIGHT LOWER LEG, INIT ENCNTR Status: Acute Priority: High Current Visit: Yes Onset Date: ~ Qualifiers: (4) Redness of skin SNOMED Code(s): 67166855 ICD Code: L53.9 - ERYTHEMATOUS CONDITION, UNSPECIFIED Status: Acute Priority: High Current Visit: Yes (5) Wound dehiscence SNOMED Code(s): 212432700 ICD Code: T81.30XA - DISRUPTION OF WOUND, UNSPECIFIED, INITIAL ENCOUNTER Status: Acute Priority: High Current Visit: Yes (6) Edema, peripheral SNOMED Code(s): 126282107 ICD Code: R60.9 - EDEMA, UNSPECIFIED Status: Chronic Priority: High Current Visit: Yes (7) Pain management SNOMED Code(s): 522895398 ICD Code: R52 - PAIN, UNSPECIFIED Status: Acute Priority: High Current Visit: Yes - Patient Summary/Data Consults: Consultations 12/05/17 11:59 OT Evaluation and Treatment [CONS] Routine Please Evaluate and Treat. OT Reason for Consult: ADL's This query below is only for informational purposes and is not editable. Admission Diagnosis/Problem: Wound dehiscence PT Evaluation and Treatment [CONS] Routine Please Evaluate and Treat. PT Reason for Consult: Wound Care This query below is only for informational purposes and is not editable. Admission Diagnosis/Problem: Wound dehiscence 12/05/17 12:00 Consult to Physical Therapy [PT Evaluation and Treatment] [CONS] Routine Please Evaluate and Treat. PT Reason for Consult: Strengthening This query below is only for informational purposes and is not editable. Admission Diagnosis/Problem: Wound dehiscence - Discharge Plan Home Medications: Home Meds Acetaminophen [Tylenol Arthritis] 650 mg PO BID 01/12/17 [History] Aspirin [Lakisha Chewable Aspirin] 81 mg PO DAILY 01/12/17 [History] Budesonide/Formoterol [Symbicort 160-4.5 MCG] 2 puff INH BID 01/12/17 [History] Dabigatran Etexilate Mesylate [Pradaxa] 150 mg PO BID 01/12/17 [History] Docusate Sodium [Colace] 100 mg PO DAILY 01/12/17 [History] Levothyroxine 125 mcg PO ACBREAKFAST 01/12/17 [History] Losartan [Cozaar] 25 mg PO DAILY 01/12/17 [History] Multivitamin with Iron [Multivitamins with Iron] 1 each PO DAILY 01/12/17 [ History] Spironolactone [Aldactone] 25 mg PO DAILY 01/12/17 [History] Terazosin [Hytrin] 5 mg PO DAILY 01/12/17 [History] Tiotropium [Spiriva Handihaler] 2 puff INH DAILY 01/12/17 [History] Torsemide 80 mg PO DAILY 01/12/17 [History] atorvaSTATin Calcium [Atorvastatin Calcium] 80 mg PO QPM 01/12/17 [History] cefTRIAXone [Rocephin] 1 gm IV Q24H vial 12/09/17 [Rx] - Discharge Summary/Plan Comment Discharge Summary/Plan Comment: Counseled on transfer to swing bed for wound care, weakness rehabilitation and antibiotics. - General Info Date of Service: 12/09/17 Functional Status: Reports: Pain Controlled, Tolerating Diet, Ambulating - Review of Systems General: Reports: Weakness HEENT: Reports: No Symptoms Pulmonary: Reports: No Symptoms Cardiovascular: Reports: No Symptoms Gastrointestinal: Reports: No Symptoms Genitourinary: Reports: No Symptoms Musculoskeletal: Reports: No Symptoms Skin: Reports: Other (wounds of right elbow and forearm, left elbow and forearm , right hand and right knee) Neurological: Reports: No Symptoms Psychiatric: Reports: No Symptoms - Patient Data Vitals - Most Recent: Last Vital Signs Temp 37.0 C 12/09/17 12:00 Pulse 63 12/09/17 12:00 Resp 21 H 12/09/17 12:00 BP 133/56 L 12/09/17 12:00 Pulse Ox 97 12/09/17 12:00 Weight - Most Recent: 103.419 kg Med Orders - Current: Current Medications Acetaminophen (Tylenol Arthritis Pain) 650 mg PO BID [facility] Last Admin: 12/09/17 08:12 Dose: 650 mg Aspirin (Aspirin) 81 mg PO DAILY [facility] Last Admin: 12/09/17 08:12 Dose: 81 mg Atorvastatin Calcium (Lipitor) 80 mg PO QPM [facility] Last Admin: 12/08/17 19:17 Dose: 80 mg Docusate Sodium (Colace) 100 mg PO DAILY [facility] Last Admin: 12/09/17 08:13 Dose: 100 mg Ceftriaxone Sodium 1 gm/ (Sodium Chloride) 50 mls @ 200 mls/hr IV Q24H [facility] Last Admin: 12/09/17 11:13 Dose: 200 mls/hr Levothyroxine Sodium (Synthroid) 125 mcg PO ACBREAKFAST [facility] Stop: 12/09/17 23:59 Last Admin: 12/09/17 08:11 Dose: 125 mcg Levothyroxine Sodium (Synthroid) 100 mcg PO ACBREAKFAST [facility] Levothyroxine Sodium (Levothyroxine) 25 mcg PO ACBREAKFAST [facility] Losartan Potassium (Cozaar) 25 mg PO DAILY [facility] Last Admin: 12/09/17 08:14 Dose: 25 mg Multivitamins/Minerals (Thera M Plus) 1 tab PO DAILY [facility] Last Admin: 12/09/17 08:13 Dose: 1 tab Non-Formulary Medication (Dabigatran Etexilate Mesylate [Pradaxa]) 150 mg PO BID [facility] Last Admin: 12/09/17 08:15 Dose: 150 mg Non-Formulary Medication (Budesonide/Formoterol [Symbicort 160-4.5 Mcg]) 2 puff INH BID [facility] Non-Formulary Medication (Tiotropium [Spiriva Handihaler]) 2 puff INH DAILY [facility] Spironolactone (Aldactone) 25 mg PO DAILY [facility] Last Admin: 12/09/17 08:13 Dose: 25 mg Terazosin HCl (Hytrin) 5 mg PO DAILY [facility] Last Admin: 12/09/17 08:12 Dose: 5 mg Torsemide (Demadex) 80 mg PO DAILY [facility] Last Admin: 12/09/17 08:16 Dose: 80 mg Discontinued Medications Ceftriaxone Sodium (Rocephin) Confirm Administered Dose 1 gm .ROUTE .STK-MED ONE Stop: 12/07/17 11:41 Last Admin: 12/07/17 19:16 Dose: Not Given Sodium Chloride (Normal Saline) 1,000 mls @ 75 mls/hr IV ASDIRECTED [facility] Last Admin: 12/07/17 02:42 Dose: 75 mls/hr Ipratropium [place] (Atrovent) 0.5 mg INH Q6H [facility] Last Admin: 12/09/17 06:34 Dose: Not Given Mometasone Furoate/Formoterol Fumar (Dulera 200-5 Mcg) 2 puff IH BID [facility] Last Admin: 12/09/17 08:16 Dose: Not Given Non-Formulary Medication (Acetaminophen [Tylenol Arthritis]) 650 mg PO BID [facility] Last Admin: 12/06/17 08:43 Dose: 650 mg Non-Formulary Medication (Aspirin [Lakisha Chewable Aspirin]) 81 mg PO DAILY [facility] Last Admin: 12/06/17 08:44 Dose: 81 mg Non-Formulary Medication (Atorvastatin Calcium [Atorvastatin Calcium]) 80 mg PO QPM [facility] Last Admin: 12/05/17 21:25 Dose: 80 mg Non-Formulary Medication (Budesonide/Formoterol [Symbicort 160-4.5 Mcg]) 2 puff INH BID [facility] Last Admin: 12/06/17 08:44 Dose: 2 puff Non-Formulary Medication (Docusate Sodium [Colace]) 100 mg PO DAILY [facility] Last Admin: 12/06/17 08:51 Dose: 100 mg Non-Formulary Medication (Levothyroxine [Levothyroxine]) 125 mcg PO ACBREAKFAST [facility] Last Admin: 12/06/17 06:41 Dose: 125 mcg Non-Formulary Medication (Losartan [Cozaar]) 25 mg PO DAILY [facility] Last Admin: 12/06/17 08:48 Dose: 25 mg Non-Formulary Medication (Multivitamin With Iron [Multivitamins With Iron]) 1 each PO DAILY [facility] Last Admin: 12/06/17 08:51 Dose: 1 each Non-Formulary Medication (Spironolactone [Aldactone]) 25 mg PO DAILY [facility] Last Admin: 12/06/17 08:49 Dose: 25 mg Non-Formulary Medication (Terazosin [Hytrin]) 5 mg PO DAILY [facility] Last Admin: 12/06/17 08:50 Dose: 5 mg Non-Formulary Medication (Tiotropium [Spiriva Handihaler]) 2 puff INH DAILY [facility] Last Admin: 12/06/17 08:50 Dose: 2 puff Non-Formulary Medication (Torsemide [Torsemide]) 80 mg PO DAILY [facility] Last Admin: 12/06/17 08:50 Dose: 80 mg - Exam General: Reports: Alert, Oriented, Cooperative HEENT: Reports: Pupils Equal, Pupils Reactive, EOMI Neck: Reports: Supple Lungs: Reports: Clear to Auscultation, Normal Respiratory Effort Cardiovascular: Reports: Regular Rate, Regular Rhythm GI/Abdominal Exam: Normal Bowel Sounds Extremities: Normal Inspection Skin: Reports: Warm, Intact, Other (wound of right elbow, right forearm, left elbow, left forearm, right hand and right knee) Wound/Incisions: Reports: Healing Well, Drainage, Erythema Improving. Denies: Erythema Neurological: Reports: No New Focal Deficit Psy/Mental Status: Reports: Alert, Normal Affect, Normal Mood
[2017-12-09] MEDS ORDERED: Non-Formulary Medication 1 Each (Budesonide/Formoterol [Symbicort 160-4.5 Mcg] 2 PUFF) INH SCH (20:00)
[2017-12-10] MEDS ORDERED: Levothyroxine 25 MCG Tab PO SCH (07:00)
[2017-12-10] MEDS ORDERED: Levothyroxine 100 MCG Tab PO SCH (07:00)
[2017-12-10] MEDS ORDERED: Non-Formulary Medication 1 Each (Tiotropium [Spiriva Handihaler] 2 PUFF) INH SCH (08:00)
== END 2017-12-09 14:20 | disposition swing bed (61) | DRG 920 ==
LOC: UNDOADMOB 11:20 → LB.MS 11:20 → OBSVTOIN 11:43 → UNDOADMOB 11:43 → INTOOBSV 11:43 → LB.MS 12-06 07:15 → OBSVTOIN 12-06 10:51 → LB.MS 12-06 10:51
PROVIDERS: ADMIT Family Medicine; ATTEND Family Medicine
PROC: 0HQKXZZ Repair Right Lower Leg Skin, External Approach (ICD-10-PCS; principal; 2017-12-05)
DX: T81.33XA Disruption of traumatic injury wound repair, initial encounter (principal); L03.115 Cellulitis of right lower limb; I10 Essential (primary) hypertension; E03.9 Hypothyroidism, unspecified; J44.9 Chronic obstructive pulmonary disease, unspecified; R29.6 Repeated falls; Z91.81 History of falling; S40.812A Abrasion of left upper arm, initial encounter; S40.811A Abrasion of right upper arm, initial encounter; S81.811A Laceration without foreign body, right lower leg, initial encounter; R60.9 Edema, unspecified; R52 Pain, unspecified; X58.XXXA Exposure to other specified factors, initial encounter; Q63.1 Lobulated, fused and horseshoe kidney; M19.90 Unspecified osteoarthritis, unspecified site; E78.00 Pure hypercholesterolemia, unspecified; Z95.2 Presence of prosthetic heart valve; Z79.01 Long term (current) use of anticoagulants; Z79.82 Long term (current) use of aspirin; Z95.1 Presence of aortocoronary bypass graft; Z95.0 Presence of cardiac pacemaker; Z96.659 Presence of unspecified artificial knee joint; R53.1 Weakness
CPT/HCPCS: 36415; 80048; 85025; 97110-GP; 97161-GP; A9270-GY; G0378; J0696; J7030; J7050

== ENCOUNTER 2017-12-09 09:56 | Inpatient (IN) | payer MEDICARE, BC ==
[2017-12-09] MEDS ORDERED: Tuberculin, PPD 5 Units/0.1 ML 1 ML MDV IDERM ONE (14:08)
--- NOTE | 2017-12-09 14:09 | PCM.HP ---
H&P History of Present Illness - General Date of Service: 12/09/17 Admit Problem/Dx: Admission Diagnosis/Problem Admission Diagnosis/Problem Weakness Source of Information: Patient History Limitations: Reports: No Limitations - History of Present Illness Initial Comments - Free Text/Narative: Patient has been admitted to Swing bed for management of his wounds and PT/OT management. He has been improving since his recent dehiscence and revision. Patient doing well without concerns. He states he feels well and has no concerns. - Related Data Allergies/Adverse Reactions: Allergies Allergy/AdvReac Type Severity Reaction Status Date / Time No Known Allergies Allergy Verified 01/12/17 15:42 Home Medications: Home Meds Acetaminophen [Tylenol Arthritis] 650 mg PO BID 01/12/17 [History] Aspirin [Lakisha Chewable Aspirin] 81 mg PO DAILY 01/12/17 [History] Budesonide/Formoterol [Symbicort 160-4.5 MCG] 2 puff INH BID 01/12/17 [History] Dabigatran Etexilate Mesylate [Pradaxa] 150 mg PO BID 01/12/17 [History] Docusate Sodium [Colace] 100 mg PO DAILY 01/12/17 [History] Levothyroxine 125 mcg PO ACBREAKFAST 01/12/17 [History] Losartan [Cozaar] 25 mg PO DAILY 01/12/17 [History] Multivitamin with Iron [Multivitamins with Iron] 1 each PO DAILY 01/12/17 [ History] Spironolactone [Aldactone] 25 mg PO DAILY 01/12/17 [History] Terazosin [Hytrin] 5 mg PO DAILY 01/12/17 [History] Tiotropium [Spiriva Handihaler] 2 puff INH DAILY 01/12/17 [History] Torsemide 80 mg PO DAILY 01/12/17 [History] atorvaSTATin Calcium [Atorvastatin Calcium] 80 mg PO QPM 01/12/17 [History] cefTRIAXone [Rocephin] 1 gm IV Q24H vial 12/09/17 [Rx] Past Medical History HEENT History: Reports: None Cardiovascular History: Reports: Heart Valve Replacement, High Cholesterol, Hypertension Respiratory History: Reports: COPD, Other (See Below) Other Respiratory History: Uses Trilogy AVAPS device when sleeping Gastrointestinal History: Reports: Chronic Constipation Genitourinary History: Reports: Other (See Below) Other Genitourinary History: horseshoe kidney Musculoskeletal History: Reports: Arthritis Endocrine/Metabolic History: Reports: Hypothyroidism Hematologic History: Reports: Anticoagulation Therapy Dermatologic History: Reports: Cellulitis - Infectious Disease History Infectious Disease History: Reports: Chicken Pox - Past Surgical History HEENT Surgical History: Reports: Tonsillectomy Cardiovascular Surgical History: Reports: Coronary Artery Bypass, Pacer, Valve Replacement Respiratory Surgical History: Reports: None GI Surgical History: Reports: Cholecystectomy, Hernia Repair/Other Male Surgical History: Reports: None Musculoskeletal Surgical History: Reports: Knee Replacement Social & Family History - Family History Family Medical History: Noncontributory - Caffeine Use Caffeine Use: Reports: Coffee H&P Review of Systems - Review of Systems: Review Of Systems: ROS reveals no pertinent complaints other than HPI. Exam - Exam Exam: See Below - Exam General: Alert, Oriented HEENT: PERRLA, Conjunctiva Clear, EACs Clear, EOMI Neck: Supple, Trachea Midline Lungs: Clear to Auscultation, Normal Respiratory Effort Cardiovascular: Regular Rate, Regular Rhythm GI/Abdominal Exam: Normal Bowel Sounds Back Exam: Normal Inspection Extremities: Normal Inspection Peripheral Pulses: 2+: Dorsalis Pedis (L), Dorsalis Pedis (R) Skin: Wound (All wounds improving gradually), Incision (healing well) Neurological: Cranial Nerves Intact Neuro Extensive - Mental Status: Alert, Oriented x3, Normal Mood/Affect Psychiatric: Alert, Normal Affect, Normal Mood - Problem List (1) Abrasion of left upper extremity SNOMED Code(s): 741815700 ICD Code: S40.812A - ABRASION OF LEFT UPPER ARM, INITIAL ENCOUNTER Status: Acute Priority: High Current Visit: No Qualifiers: (2) Abrasion of right upper extremity SNOMED Code(s): 495609445 ICD Code: S40.811A - ABRASION OF RIGHT UPPER ARM, INITIAL ENCOUNTER Status : Acute Priority: High Current Visit: No Qualifiers: (3) Laceration of leg, right SNOMED Code(s): 414912283 ICD Code: S81.811A - LACERATION W/O FOREIGN BODY, RIGHT LOWER LEG, INIT ENCNTR Status: Acute Priority: High Current Visit: No Onset Date: ~11/05 Qualifiers: (4) Pain management SNOMED Code(s): 733479834 ICD Code: R52 - PAIN, UNSPECIFIED Status: Acute Priority: High Current Visit: No (5) Wound dehiscence SNOMED Code(s): 980339959 ICD Code: T81.30XA - DISRUPTION OF WOUND, UNSPECIFIED, INITIAL ENCOUNTER Status: Acute Priority: High Current Visit: No (6) Weakness SNOMED Code(s): 76128508 ICD Code: R53.1 - WEAKNESS Status: Chronic Priority: High Current Visit : No Problem List Initiated/Reviewed/Updated: Yes Orders Last 24hrs: Active Orders 24 hr Category Date Time Status Patient Status [ADT] Routine ADT 12/09/17 14:08 Ordered Consult to Infection Prevention [CONS] Routine Cons 12/09/17 14:08 Ordered Consult to Wound Care Services [CONS] Routine Cons 12/09/17 14:08 Ordered OT Evaluation and Treatment [CONS] Routine Cons 12/09/17 14:08 Ordered PT Evaluation and Treatment [CONS] Routine Cons 12/09/17 14:08 Ordered Tuberculin, PPD [Aplisol] Med 12/09/17 14:08 Once 5 unit IDERM ONETIME ONE Assessment/Plan Comment:: Patient admitted for Swing bed subacute care for wound healing and weakness. We will continue PT/OT and wound management daily.
[2017-12-09] MEDS ORDERED: cefTRIAXone 1 GM Vial IV SCH (16:30)
[2017-12-09] MEDS ORDERED: cefTRIAXone 1 GM in Sodium Chloride 0.9% 50 ML IV SCH (17:00)
[2017-12-09] MEDS: atorvaSTATin 80 MG Tab PO SCH (20:45)
[2017-12-09] MEDS: Formoterol/Mometasone 200-5 MCG 8.8 GM Inhaler IH SCH (20:45)
[2017-12-09] MEDS: Acetaminophen 650 MG Tab.ER PO SCH (20:46)
[2017-12-09] MEDS: Sodium Chloride 0.9% 10 ML Syringe FLUSH SCH (22:05)
[2017-12-10] MEDS: Aspirin 81 MG Tab.EC PO SCH (07:42)
[2017-12-10] MEDS: Levothyroxine 50 MCG Tab PO SCH (07:42)
[2017-12-10] MEDS: Losartan 25 MG Tab PO SCH (07:43)
[2017-12-10] MEDS: Acetaminophen 650 MG Tab.ER PO SCH ×2 (07:43→20:26)
[2017-12-10] MEDS: Docusate Sodium 100 MG Cap PO SCH (07:43)
[2017-12-10] MEDS: Formoterol/Mometasone 200-5 MCG 8.8 GM Inhaler IH SCH (07:44)
[2017-12-10] MEDS: Multivitamins with Iron/Calcium/Folic Acid/Minerals Tab PO SCH (07:45)
[2017-12-10] MEDS: BUDESONIDE INH SCH ×2 (07:45→20:28)
[2017-12-10] MEDS: FORMOTEROL INH SCH ×2 (07:45→20:28)
[2017-12-10] MEDS: SPIRIVA RESPIMAT INH SCH (07:45)
[2017-12-10] MEDS ORDERED: Terazosin 1 MG Cap PO SCH (08:00)
[2017-12-10] MEDS: Sodium Chloride 0.9% 10 ML Syringe FLUSH SCH ×2 (11:30→20:28)
[2017-12-10] MEDS: cefTRIAXone 1 GM in Sodium Chloride 0.9% 50 ML IV SCH (11:30)
[2017-12-10] MEDS: Spironolactone 25 MG Tab PO SCH (12:22)
[2017-12-10] MEDS: Torsemide 20 MG Tab PO SCH (12:22)
[2017-12-10] MEDS: atorvaSTATin 80 MG Tab PO SCH (20:26)
[2017-12-11] MEDS: Multivitamins with Iron/Calcium/Folic Acid/Minerals Tab PO SCH (07:53)
[2017-12-11] MEDS: Docusate Sodium 100 MG Cap PO SCH (07:53)
[2017-12-11] MEDS: Spironolactone 25 MG Tab PO SCH (07:53)
[2017-12-11] MEDS: Aspirin 81 MG Tab.EC PO SCH (07:53)
[2017-12-11] MEDS: Terazosin 5 MG Cap PO SCH (07:53)
[2017-12-11] MEDS: Losartan 25 MG Tab PO SCH (07:53)
[2017-12-11] MEDS: Levothyroxine 50 MCG Tab PO SCH (07:53)
[2017-12-11] MEDS: SPIRIVA RESPIMAT INH SCH (07:54)
[2017-12-11] MEDS: Torsemide 20 MG Tab PO SCH (07:54)
[2017-12-11] MEDS: FORMOTEROL INH SCH ×2 (07:54→20:32)
[2017-12-11] MEDS: BUDESONIDE INH SCH ×2 (07:54→20:32)
[2017-12-11] MEDS: Acetaminophen 650 MG Tab.ER PO SCH ×2 (07:55→20:33)
[2017-12-11] MEDS: Sodium Chloride 0.9% 10 ML Syringe FLUSH SCH ×2 (07:58→20:30)
[2017-12-11] MEDS: cefTRIAXone 1 GM in Sodium Chloride 0.9% 50 ML IV SCH (11:44)
[2017-12-11] MEDS: atorvaSTATin 80 MG Tab PO SCH (20:33)
[2017-12-12] MEDS: Levothyroxine 50 MCG Tab PO SCH (07:23)
[2017-12-12] MEDS: BUDESONIDE INH SCH ×2 (07:23→20:05)
[2017-12-12] MEDS: Torsemide 20 MG Tab PO SCH (07:23)
[2017-12-12] MEDS: FORMOTEROL INH SCH ×2 (07:23→20:05)
[2017-12-12] MEDS: Acetaminophen 650 MG Tab.ER PO SCH ×2 (07:24→20:05)
[2017-12-12] MEDS: Multivitamins with Iron/Calcium/Folic Acid/Minerals Tab PO SCH (07:24)
[2017-12-12] MEDS: Terazosin 5 MG Cap PO SCH (07:24)
[2017-12-12] MEDS: Docusate Sodium 100 MG Cap PO SCH (07:24)
[2017-12-12] MEDS: Aspirin 81 MG Tab.EC PO SCH (07:24)
[2017-12-12] MEDS: Losartan 25 MG Tab PO SCH (07:24)
[2017-12-12] MEDS: SPIRIVA RESPIMAT INH SCH (07:24)
[2017-12-12] MEDS: Spironolactone 25 MG Tab PO SCH (07:24)
[2017-12-12] MEDS: Sodium Chloride 0.9% 10 ML Syringe FLUSH SCH ×2 (07:32→20:05)
--- NOTE | 2017-12-12 11:19 | PCM.SN ---
- Free Text/Narrative Note: Rechecked wounds. All have improved and healing well. Reviewed diet and agree with diet for wound healing. Continue current management and PT/OT.
[2017-12-12] MEDS: cefTRIAXone 1 GM in Sodium Chloride 0.9% 50 ML IV SCH (11:28)
[2017-12-12] MEDS: atorvaSTATin 80 MG Tab PO SCH (20:05)
[2017-12-13] MEDS: Levothyroxine 50 MCG Tab PO SCH (06:49)
[2017-12-13] MEDS: Terazosin 5 MG Cap PO SCH (08:21)
[2017-12-13] MEDS: Torsemide 20 MG Tab PO SCH (08:21)
[2017-12-13] MEDS: Losartan 25 MG Tab PO SCH (08:22)
[2017-12-13] MEDS: Aspirin 81 MG Tab.EC PO SCH (08:22)
[2017-12-13] MEDS: Docusate Sodium 100 MG Cap PO SCH (08:22)
[2017-12-13] MEDS: Sodium Chloride 0.9% 10 ML Syringe FLUSH SCH ×2 (08:23→19:37)
[2017-12-13] MEDS: Acetaminophen 650 MG Tab.ER PO SCH ×2 (08:23→19:35)
[2017-12-13] MEDS: Multivitamins with Iron/Calcium/Folic Acid/Minerals Tab PO SCH (08:23)
[2017-12-13] MEDS: BUDESONIDE INH SCH ×2 (08:24→19:38)
[2017-12-13] MEDS: FORMOTEROL INH SCH ×2 (08:24→19:38)
[2017-12-13] MEDS: SPIRIVA RESPIMAT INH SCH (08:24)
[2017-12-13] MEDS: Spironolactone 25 MG Tab PO SCH (08:27)
[2017-12-13] MEDS: cefTRIAXone 1 GM in Sodium Chloride 0.9% 50 ML IV SCH (11:22)
[2017-12-13] MEDS: atorvaSTATin 80 MG Tab PO SCH (19:35)
[2017-12-14] MEDS: Levothyroxine 50 MCG Tab PO SCH (06:12)
[2017-12-14] MEDS: Docusate Sodium 100 MG Cap PO SCH (07:31)
[2017-12-14] MEDS: Acetaminophen 650 MG Tab.ER PO SCH ×2 (07:32→19:16)
[2017-12-14] MEDS: Multivitamins with Iron/Calcium/Folic Acid/Minerals Tab PO SCH (07:32)
[2017-12-14] MEDS: Spironolactone 25 MG Tab PO SCH (07:32)
[2017-12-14] MEDS: Terazosin 5 MG Cap PO SCH (07:32)
[2017-12-14] MEDS: Aspirin 81 MG Tab.EC PO SCH (07:32)
[2017-12-14] MEDS: Torsemide 20 MG Tab PO SCH (07:32)
[2017-12-14] MEDS: BUDESONIDE INH SCH ×2 (07:33→19:15)
[2017-12-14] MEDS: FORMOTEROL INH SCH ×2 (07:33→19:15)
[2017-12-14] MEDS: SPIRIVA RESPIMAT INH SCH (07:33)
[2017-12-14] MEDS: Sodium Chloride 0.9% 10 ML Syringe FLUSH SCH ×2 (07:33→19:15)
[2017-12-14] MEDS: Losartan 25 MG Tab PO SCH (07:50)
[2017-12-14] MEDS: ENSURE ENLIVE PO SCH (07:50)
[2017-12-14] MEDS: JUVEN PO SCH ×2 (09:29→14:11)
[2017-12-14] MEDS: cefTRIAXone 1 GM in Sodium Chloride 0.9% 50 ML IV SCH (10:03)
[2017-12-14] MEDS: atorvaSTATin 80 MG Tab PO SCH (19:15)
[2017-12-15] MEDS: Levothyroxine 50 MCG Tab PO SCH (07:06)
[2017-12-15] MEDS: BUDESONIDE INH SCH ×2 (07:45→19:09)
[2017-12-15] MEDS: FORMOTEROL INH SCH ×2 (07:45→19:09)
[2017-12-15] MEDS: SPIRIVA RESPIMAT INH SCH (07:45)
[2017-12-15] MEDS: Torsemide 20 MG Tab PO SCH (07:46)
[2017-12-15] MEDS: Aspirin 81 MG Tab.EC PO SCH (07:46)
[2017-12-15] MEDS: Terazosin 5 MG Cap PO SCH (07:46)
[2017-12-15] MEDS: Acetaminophen 650 MG Tab.ER PO SCH ×2 (07:46→19:09)
[2017-12-15] MEDS: Docusate Sodium 100 MG Cap PO SCH (07:46)
[2017-12-15] MEDS: Losartan 25 MG Tab PO SCH (07:46)
[2017-12-15] MEDS: ENSURE ENLIVE PO SCH (07:47)
[2017-12-15] MEDS: Spironolactone 25 MG Tab PO SCH (07:47)
[2017-12-15] MEDS: Sodium Chloride 0.9% 10 ML Syringe FLUSH SCH ×2 (07:47→19:13)
[2017-12-15] MEDS: Multivitamins with Iron/Calcium/Folic Acid/Minerals Tab PO SCH (07:47)
[2017-12-15] MEDS: JUVEN PO SCH ×2 (10:36→14:55)
[2017-12-15] MEDS: cefTRIAXone 1 GM in Sodium Chloride 0.9% 50 ML IV SCH (10:36)
[2017-12-15] MEDS: atorvaSTATin 80 MG Tab PO SCH (19:09)
[2017-12-16] MEDS: Levothyroxine 50 MCG Tab PO SCH (07:30)
[2017-12-16] MEDS: BUDESONIDE INH SCH ×2 (08:56→20:11)
[2017-12-16] MEDS: Acetaminophen 650 MG Tab.ER PO SCH ×2 (08:56→20:10)
[2017-12-16] MEDS: Terazosin 5 MG Cap PO SCH (08:56)
[2017-12-16] MEDS: Docusate Sodium 100 MG Cap PO SCH (08:56)
[2017-12-16] MEDS: FORMOTEROL INH SCH ×2 (08:56→20:11)
[2017-12-16] MEDS: Aspirin 81 MG Tab.EC PO SCH (08:56)
[2017-12-16] MEDS: Losartan 25 MG Tab PO SCH (08:56)
[2017-12-16] MEDS: Multivitamins with Iron/Calcium/Folic Acid/Minerals Tab PO SCH (08:57)
[2017-12-16] MEDS: Spironolactone 25 MG Tab PO SCH (08:57)
[2017-12-16] MEDS: Torsemide 20 MG Tab PO SCH (08:57)
[2017-12-16] MEDS: ENSURE ENLIVE PO SCH (08:58)
[2017-12-16] MEDS: SPIRIVA RESPIMAT INH SCH (08:58)
[2017-12-16] MEDS: Sodium Chloride 0.9% 10 ML Syringe FLUSH SCH ×2 (08:58→20:11)
[2017-12-16] MEDS: cefTRIAXone 1 GM in Sodium Chloride 0.9% 50 ML IV SCH (12:04)
[2017-12-16] MEDS: JUVEN PO SCH ×2 (12:04→17:02)
--- NOTE | 2017-12-16 17:16 | PCM.PN ---
- General Info Date of Service: 12/16/17 Subjective Update: Patient is doing well and has improved wound healing and mobility. He denies any concerns today. - Review of Systems General: Reports: Weakness HEENT: Reports: No Symptoms Pulmonary: Reports: No Symptoms Cardiovascular: Reports: No Symptoms Gastrointestinal: Reports: No Symptoms Genitourinary: Reports: No Symptoms Musculoskeletal: Reports: No Symptoms Skin: Reports: Other (wound of right knee, right hand, right elbow, left elbow) - Patient Data Vitals - Most Recent: Last Vital Signs Temp 37.1 C 12/15/17 19:20 Pulse 64 12/15/17 19:20 Resp 20 12/15/17 08:00 BP 122/47 L 12/15/17 19:20 Pulse Ox 94 L 12/15/17 19:20 Weight - Most Recent: 103.419 kg I&O - Last 24 Hours: Intake & Output 12/16/17 12/16/17 12/16/17 06:59 14:59 22:59 Intake Total 50 Balance 50 Med Orders - Current: Current Medications Acetaminophen (Tylenol Arthritis Pain) 650 mg PO BID [facility] Last Admin: 12/16/17 08:56 Dose: 650 mg Aspirin (Halfprin) 81 mg PO DAILY [facility] Last Admin: 12/16/17 08:56 Dose: 81 mg Atorvastatin Calcium (Lipitor) 80 mg PO QPM [facility] Last Admin: 12/15/17 19:09 Dose: 80 mg Dabigatran (Pradaxa) 150 mg PO BID [facility] Last Admin: 12/16/17 08:57 Dose: 150 mg Docusate Sodium (Colace) 100 mg PO DAILY [facility] Last Admin: 12/16/17 08:56 Dose: 100 mg Ceftriaxone Sodium 1 gm/ (Sodium Chloride) 50 mls @ 100 mls/hr IV Q24H [facility] Stop: 12/17/17 11:30 Last Admin: 12/16/17 12:04 Dose: 100 mls/hr Levothyroxine Sodium (Synthroid) 125 mcg PO ACBREAKFAST [facility] Last Admin: 12/16/17 07:30 Dose: 125 mcg Losartan Potassium (Cozaar) 25 mg PO DAILY [facility] Last Admin: 12/16/17 08:56 Dose: 25 mg Multivitamins/Minerals (Thera M Plus) 1 tab PO DAILY [facility] Last Admin: 12/16/17 08:57 Dose: 1 tab Spiriva Respimat 2 each INH DAILY [facility] Last Admin: 12/16/17 08:58 Dose: 2 each Budesonide/Formoterol 160mcg/4.5mcg 2 each INH BID [facility] Last Admin: 12/16/17 08:56 Dose: 2 each Ensure Enlive 1 each PO DAILY [facility] Last Admin: 12/16/17 08:58 Dose: 1 each Yobani 1 each PO BID@1000,1400 [facility] Last Admin: 12/16/17 17:02 Dose: Not Given Sodium Chloride (Saline Flush) 10 ml FLUSH BID [facility] Last Admin: 12/16/17 08:58 Dose: 10 ml Spironolactone (Aldactone) 25 mg PO DAILY [facility] Last Admin: 12/16/17 08:57 Dose: 25 mg Terazosin HCl (Hytrin) 5 mg PO DAILY [facility] Last Admin: 12/16/17 08:56 Dose: 5 mg Torsemide (Demadex) 80 mg PO DAILY [facility] Last Admin: 12/16/17 08:57 Dose: 80 mg Discontinued Medications Ceftriaxone Sodium (Rocephin) 1 gm IV Q24H [facility] Last Admin: 12/09/17 19:10 Dose: Not Given Ceftriaxone Sodium 1 gm/ (Sodium Chloride) 50 mls @ 100 mls/hr IV Q24H [facility] Last Admin: 12/09/17 19:10 Dose: Not Given Losartan Potassium (Cozaar) 25 mg PO DAILY [facility] Last Admin: 12/13/17 08:22 Dose: 25 mg Mometasone Furoate/Formoterol Fumar (Dulera 200-5 Mcg) 0 puff IH BID [facility] Last Admin: 12/10/17 07:44 Dose: 2 puff (Dabigatran Etexilate Mesylate [ Pradaxa] 150 Mg)*Pt Own Med* 150 mg PO BID [facility] Last Admin: 12/10/17 07:44 Dose: 150 mg Terazosin HCl (Hytrin) 5 mg PO DAILY [facility] Last Admin: 12/10/17 12:22 Dose: 5 mg Tuberculin PPD (Aplisol) 5 unit IDERM ONETIME ONE Stop: 12/09/17 14:09 Last Admin: 12/09/17 17:11 Dose: 5 unit - Exam General: Alert, Oriented HEENT: Pupils Equal, Pupils Reactive, EOMI Neck: Supple Lungs: Clear to Auscultation, Normal Respiratory Effort Cardiovascular: Regular Rate, Regular Rhythm Extremities: Normal Inspection Peripheral Pulses: 2+: Dorsalis Pedis (L), Dorsalis Pedis (R) Skin: Warm, Dry, Intact Wound/Incisions: Healing Well - Problem List & Annotations (1) Abrasion of left upper extremity SNOMED Code(s): 342371392 Code(s): S40.812A - ABRASION OF LEFT UPPER ARM, INITIAL ENCOUNTER Status: Acute Priority: High Current Visit: No Qualifiers: (2) Abrasion of right upper extremity SNOMED Code(s): 607840616 Code(s): S40.811A - ABRASION OF RIGHT UPPER ARM, INITIAL ENCOUNTER Status: Acute Priority: High Current Visit: No Qualifiers: (3) Laceration of leg, right SNOMED Code(s): 676568831 Code(s): S81.811A - LACERATION W/O FOREIGN BODY, RIGHT LOWER LEG, INIT ENCNTR Status: Acute Priority: High Current Visit: No Onset Date: ~11/05 Qualifiers: (4) Pain management SNOMED Code(s): 865942774 Code(s): R52 - PAIN, UNSPECIFIED Status: Acute Priority: High Current Visit: No (5) Wound dehiscence SNOMED Code(s): 884283533 Code(s): T81.30XA - DISRUPTION OF WOUND, UNSPECIFIED, INITIAL ENCOUNTER Status: Acute Priority: High Current Visit: No (6) Weakness SNOMED Code(s): 42415503 Code(s): R53.1 - WEAKNESS Status: Chronic Priority: High Current Visit : No - Problem List Review Problem List Initiated/Reviewed/Updated: Yes - Plan Plan:: Patient admitted for Swing bed subacute care for wound healing and weakness. We will continue PT/OT and wound management daily. 12/16/17 Patient will continue current wound care management. Discussed antibiotics and Rocephin use. Continue current PT/OT.
[2017-12-16] MEDS: atorvaSTATin 80 MG Tab PO SCH (20:10)
[2017-12-17] MEDS: FORMOTEROL INH SCH ×2 (07:30→19:47)
[2017-12-17] MEDS: SPIRIVA RESPIMAT INH SCH (07:30)
[2017-12-17] MEDS: BUDESONIDE INH SCH ×2 (07:30→19:47)
[2017-12-17] MEDS: ENSURE ENLIVE PO SCH (07:30)
[2017-12-17] MEDS: Torsemide 20 MG Tab PO SCH (08:16)
[2017-12-17] MEDS: Terazosin 5 MG Cap PO SCH (08:17)
[2017-12-17] MEDS: Docusate Sodium 100 MG Cap PO SCH (08:17)
[2017-12-17] MEDS: Acetaminophen 650 MG Tab.ER PO SCH ×2 (08:17→19:47)
[2017-12-17] MEDS: Aspirin 81 MG Tab.EC PO SCH (08:17)
[2017-12-17] MEDS: Losartan 25 MG Tab PO SCH (08:17)
[2017-12-17] MEDS: Multivitamins with Iron/Calcium/Folic Acid/Minerals Tab PO SCH (08:17)
[2017-12-17] MEDS: Spironolactone 25 MG Tab PO SCH (08:18)
[2017-12-17] MEDS: Levothyroxine 50 MCG Tab PO SCH (08:18)
[2017-12-17] MEDS: Sodium Chloride 0.9% 10 ML Syringe FLUSH SCH ×2 (11:52→19:50)
[2017-12-17] MEDS: JUVEN PO SCH ×2 (11:52→14:50)
[2017-12-17] MEDS: cefTRIAXone 1 GM in Sodium Chloride 0.9% 50 ML IV SCH (11:53)
[2017-12-17] MEDS: atorvaSTATin 80 MG Tab PO SCH (19:46)
[2017-12-18] MEDS: Levothyroxine 50 MCG Tab PO SCH (07:44)
[2017-12-18] MEDS: Spironolactone 25 MG Tab PO SCH (07:45)
[2017-12-18] MEDS: Losartan 25 MG Tab PO SCH (07:45)
[2017-12-18] MEDS: Multivitamins with Iron/Calcium/Folic Acid/Minerals Tab PO SCH (07:45)
[2017-12-18] MEDS: Docusate Sodium 100 MG Cap PO SCH (07:45)
[2017-12-18] MEDS: Terazosin 5 MG Cap PO SCH (07:45)
[2017-12-18] MEDS: Aspirin 81 MG Tab.EC PO SCH (07:45)
[2017-12-18] MEDS: ENSURE ENLIVE PO SCH (07:46)
[2017-12-18] MEDS: FORMOTEROL INH SCH ×2 (07:46→19:54)
[2017-12-18] MEDS: SPIRIVA RESPIMAT INH SCH (07:46)
[2017-12-18] MEDS: BUDESONIDE INH SCH ×2 (07:46→19:54)
[2017-12-18] MEDS: Acetaminophen 650 MG Tab.ER PO SCH ×2 (07:46→19:55)
[2017-12-18] MEDS: Torsemide 20 MG Tab PO SCH (07:46)
[2017-12-18] MEDS: JUVEN PO SCH ×2 (14:38→14:39)
[2017-12-18] MEDS: Cephalexin 500 MG Cap PO SCH ×2 (19:53→19:54)
[2017-12-18] MEDS: atorvaSTATin 80 MG Tab PO SCH (19:54)
[2017-12-18] MEDS: Sodium Chloride 0.9% 10 ML Syringe FLUSH SCH (19:58)
[2017-12-19] MEDS: Levothyroxine 50 MCG Tab PO SCH (07:50)
[2017-12-19] MEDS: Cephalexin 500 MG Cap PO SCH ×3 (07:51→19:52)
[2017-12-19] MEDS: Spironolactone 25 MG Tab PO SCH (07:52)
[2017-12-19] MEDS: Losartan 25 MG Tab PO SCH (07:52)
[2017-12-19] MEDS: Terazosin 5 MG Cap PO SCH (07:52)
[2017-12-19] MEDS: Multivitamins with Iron/Calcium/Folic Acid/Minerals Tab PO SCH (07:52)
[2017-12-19] MEDS: Docusate Sodium 100 MG Cap PO SCH (07:53)
[2017-12-19] MEDS: Aspirin 81 MG Tab.EC PO SCH (07:53)
[2017-12-19] MEDS: Acetaminophen 650 MG Tab.ER PO SCH ×2 (07:53→19:53)
[2017-12-19] MEDS: SPIRIVA RESPIMAT INH SCH (07:54)
[2017-12-19] MEDS: FORMOTEROL INH SCH ×2 (07:54→19:54)
[2017-12-19] MEDS: BUDESONIDE INH SCH ×2 (07:54→19:54)
[2017-12-19] MEDS: Torsemide 20 MG Tab PO SCH (07:56)
[2017-12-19] MEDS: ENSURE ENLIVE PO SCH (07:58)
[2017-12-19] MEDS: JUVEN PO SCH ×2 (10:12→14:25)
--- NOTE | 2017-12-19 16:47 | PCM.SN ---
- Free Text/Narrative Note: Patient counseled on wound care and management. He is counseled on care of right knee to be immobilized very well to prevent dehiscence when out on day pass for a few hours only. Discussed not to take off immobilizer at all. Counseled on diligent care and management. RTC Swing as directed.
[2017-12-19] MEDS: atorvaSTATin 80 MG Tab PO SCH (19:52)
[2017-12-20] MEDS: Levothyroxine 50 MCG Tab PO SCH (07:33)
[2017-12-20] MEDS: Cephalexin 500 MG Cap PO SCH ×3 (07:33→20:08)
[2017-12-20] MEDS: Terazosin 5 MG Cap PO SCH (07:33)
[2017-12-20] MEDS: Aspirin 81 MG Tab.EC PO SCH (07:33)
[2017-12-20] MEDS: Multivitamins with Iron/Calcium/Folic Acid/Minerals Tab PO SCH (07:33)
[2017-12-20] MEDS: Docusate Sodium 100 MG Cap PO SCH (07:33)
[2017-12-20] MEDS: Losartan 25 MG Tab PO SCH (07:34)
[2017-12-20] MEDS: Spironolactone 25 MG Tab PO SCH (07:34)
[2017-12-20] MEDS: Torsemide 20 MG Tab PO SCH (07:34)
[2017-12-20] MEDS: BUDESONIDE INH SCH ×2 (07:34→20:08)
[2017-12-20] MEDS: FORMOTEROL INH SCH ×2 (07:34→20:08)
[2017-12-20] MEDS: SPIRIVA RESPIMAT INH SCH (07:35)
[2017-12-20] MEDS: Acetaminophen 650 MG Tab.ER PO SCH ×2 (07:35→20:08)
[2017-12-20] MEDS: ENSURE ENLIVE PO SCH (07:43)
[2017-12-20] MEDS: JUVEN PO SCH ×2 (11:17→14:41)
[2017-12-20] MEDS: atorvaSTATin 80 MG Tab PO SCH (20:08)
[2017-12-21] MEDS: Aspirin 81 MG Tab.EC PO SCH (07:43)
[2017-12-21] MEDS: Multivitamins with Iron/Calcium/Folic Acid/Minerals Tab PO SCH (07:43)
[2017-12-21] MEDS: Terazosin 5 MG Cap PO SCH (07:43)
[2017-12-21] MEDS: FORMOTEROL INH SCH ×2 (07:43→20:33)
[2017-12-21] MEDS: Docusate Sodium 100 MG Cap PO SCH (07:43)
[2017-12-21] MEDS: Cephalexin 500 MG Cap PO SCH ×3 (07:43→20:31)
[2017-12-21] MEDS: BUDESONIDE INH SCH ×2 (07:43→20:33)
[2017-12-21] MEDS: Levothyroxine 50 MCG Tab PO SCH (07:44)
[2017-12-21] MEDS: Torsemide 20 MG Tab PO SCH (07:44)
[2017-12-21] MEDS: Spironolactone 25 MG Tab PO SCH (07:44)
[2017-12-21] MEDS: Losartan 25 MG Tab PO SCH (07:44)
[2017-12-21] MEDS: Acetaminophen 650 MG Tab.ER PO SCH ×2 (07:46→20:31)
[2017-12-21] MEDS: SPIRIVA RESPIMAT INH SCH (07:46)
[2017-12-21] MEDS: ENSURE ENLIVE PO SCH (07:46)
[2017-12-21] MEDS: JUVEN PO SCH ×2 (11:41→15:50)
[2017-12-21] MEDS: atorvaSTATin 80 MG Tab PO SCH (20:31)
[2017-12-22] MEDS: Levothyroxine 50 MCG Tab PO SCH (08:09)
[2017-12-22] MEDS: Aspirin 81 MG Tab.EC PO SCH (08:11)
[2017-12-22] MEDS: Cephalexin 500 MG Cap PO SCH ×3 (08:12→20:39)
[2017-12-22] MEDS: Torsemide 20 MG Tab PO SCH (08:12)
[2017-12-22] MEDS: Losartan 25 MG Tab PO SCH (08:12)
[2017-12-22] MEDS: Terazosin 5 MG Cap PO SCH (08:12)
[2017-12-22] MEDS: Multivitamins with Iron/Calcium/Folic Acid/Minerals Tab PO SCH (08:13)
[2017-12-22] MEDS: Spironolactone 25 MG Tab PO SCH (08:13)
[2017-12-22] MEDS: ENSURE ENLIVE PO SCH (08:13)
[2017-12-22] MEDS: Docusate Sodium 100 MG Cap PO SCH (08:13)
[2017-12-22] MEDS: BUDESONIDE INH SCH ×2 (08:14→20:39)
[2017-12-22] MEDS: Acetaminophen 650 MG Tab.ER PO SCH ×2 (08:14→20:39)
[2017-12-22] MEDS: SPIRIVA RESPIMAT INH SCH (08:14)
[2017-12-22] MEDS: FORMOTEROL INH SCH ×2 (08:14→20:39)
[2017-12-22] MEDS: JUVEN PO SCH ×2 (10:57→15:20)
[2017-12-22] MEDS: atorvaSTATin 80 MG Tab PO SCH (20:38)
[2017-12-23] MEDS: Levothyroxine 50 MCG Tab PO SCH (06:45)
[2017-12-23] MEDS: Spironolactone 25 MG Tab PO SCH (07:30)
[2017-12-23] MEDS: Losartan 25 MG Tab PO SCH (07:31)
[2017-12-23] MEDS: Docusate Sodium 100 MG Cap PO SCH (07:31)
[2017-12-23] MEDS: Torsemide 20 MG Tab PO SCH (07:33)
[2017-12-23] MEDS: Aspirin 81 MG Tab.EC PO SCH (07:34)
[2017-12-23] MEDS: Terazosin 5 MG Cap PO SCH (07:34)
[2017-12-23] MEDS: Cephalexin 500 MG Cap PO SCH ×3 (07:35→20:17)
[2017-12-23] MEDS: FORMOTEROL INH SCH ×2 (07:37→20:17)
[2017-12-23] MEDS: BUDESONIDE INH SCH ×2 (07:37→20:17)
[2017-12-23] MEDS: ENSURE ENLIVE PO SCH (07:37)
[2017-12-23] MEDS: SPIRIVA RESPIMAT INH SCH (07:40)
[2017-12-23] MEDS: Acetaminophen 650 MG Tab.ER PO SCH ×2 (07:41→20:17)
[2017-12-23] MEDS: Multivitamins with Iron/Calcium/Folic Acid/Minerals Tab PO SCH (07:41)
[2017-12-23] MEDS ORDERED: Tuberculin, PPD 5 Units/0.1 ML 1 ML MDV IDERM ONE (08:00)
[2017-12-23] MEDS: JUVEN PO SCH ×2 (09:07→15:52)
[2017-12-23] MEDS: atorvaSTATin 80 MG Tab PO SCH (20:17)
[2017-12-24] MEDS: Levothyroxine 50 MCG Tab PO SCH (06:23)
[2017-12-24] MEDS: Terazosin 5 MG Cap PO SCH (08:10)
[2017-12-24] MEDS: Multivitamins with Iron/Calcium/Folic Acid/Minerals Tab PO SCH (08:10)
[2017-12-24] MEDS: Cephalexin 500 MG Cap PO SCH ×3 (08:10→20:34)
[2017-12-24] MEDS: Aspirin 81 MG Tab.EC PO SCH (08:10)
[2017-12-24] MEDS: Docusate Sodium 100 MG Cap PO SCH (08:10)
[2017-12-24] MEDS: Losartan 25 MG Tab PO SCH (08:11)
[2017-12-24] MEDS: Spironolactone 25 MG Tab PO SCH (08:11)
[2017-12-24] MEDS: ENSURE ENLIVE PO SCH (08:12)
[2017-12-24] MEDS: Acetaminophen 650 MG Tab.ER PO SCH ×2 (08:12→20:34)
[2017-12-24] MEDS: SPIRIVA RESPIMAT INH SCH (08:12)
[2017-12-24] MEDS: Torsemide 20 MG Tab PO SCH (08:12)
[2017-12-24] MEDS: BUDESONIDE INH SCH ×2 (08:12→20:34)
[2017-12-24] MEDS: FORMOTEROL INH SCH ×2 (08:12→20:34)
[2017-12-24] MEDS: JUVEN PO SCH ×2 (12:16→15:02)
[2017-12-24] MEDS: atorvaSTATin 80 MG Tab PO SCH (20:34)
[2017-12-25] MEDS: Docusate Sodium 100 MG Cap PO SCH (08:51)
[2017-12-25] MEDS: Aspirin 81 MG Tab.EC PO SCH (08:51)
[2017-12-25] MEDS: Acetaminophen 650 MG Tab.ER PO SCH ×2 (08:52→19:50)
[2017-12-25] MEDS: Torsemide 20 MG Tab PO SCH (08:52)
[2017-12-25] MEDS: Cephalexin 500 MG Cap PO SCH ×3 (08:52→19:50)
[2017-12-25] MEDS: Terazosin 5 MG Cap PO SCH (08:53)
[2017-12-25] MEDS: Losartan 25 MG Tab PO SCH (08:58)
[2017-12-25] MEDS: Multivitamins with Iron/Calcium/Folic Acid/Minerals Tab PO SCH (08:58)
[2017-12-25] MEDS: Spironolactone 25 MG Tab PO SCH (08:59)
[2017-12-25] MEDS: BUDESONIDE INH SCH ×2 (08:59→19:50)
[2017-12-25] MEDS: FORMOTEROL INH SCH ×2 (08:59→19:50)
[2017-12-25] MEDS: Levothyroxine 50 MCG Tab PO SCH (08:59)
[2017-12-25] MEDS: SPIRIVA RESPIMAT INH SCH (08:59)
[2017-12-25] MEDS: ENSURE ENLIVE PO SCH (08:59)
[2017-12-25] MEDS: JUVEN PO SCH ×2 (10:47→13:49)
[2017-12-25] MEDS: atorvaSTATin 80 MG Tab PO SCH (19:50)
[2017-12-26] MEDS: Torsemide 20 MG Tab PO SCH (07:50)
[2017-12-26] MEDS: Aspirin 81 MG Tab.EC PO SCH (07:51)
[2017-12-26] MEDS: Terazosin 5 MG Cap PO SCH (07:51)
[2017-12-26] MEDS: Docusate Sodium 100 MG Cap PO SCH (07:51)
[2017-12-26] MEDS: Spironolactone 25 MG Tab PO SCH (07:51)
[2017-12-26] MEDS: Cephalexin 500 MG Cap PO SCH (07:51)
[2017-12-26] MEDS: Multivitamins with Iron/Calcium/Folic Acid/Minerals Tab PO SCH (07:51)
[2017-12-26] MEDS: Levothyroxine 50 MCG Tab PO SCH (07:52)
[2017-12-26] MEDS: Losartan 25 MG Tab PO SCH (07:53)
[2017-12-26] MEDS: BUDESONIDE INH SCH (07:54)
[2017-12-26] MEDS: FORMOTEROL INH SCH (07:54)
[2017-12-26] MEDS: ENSURE ENLIVE PO SCH (07:55)
[2017-12-26] MEDS: SPIRIVA RESPIMAT INH SCH (07:55)
[2017-12-26] MEDS: Acetaminophen 650 MG Tab.ER PO SCH (07:56)
--- NOTE | 2017-12-26 10:56 | PCM.DCSUM1 ---
Discharge Summary - Discharge Data Discharge Date: 12/26/17 Discharge Disposition: Home, Self-Care 01 Condition: Good - Discharge Diagnosis/Problem(s) (1) Abrasion of left upper extremity SNOMED Code(s): 068363886 ICD Code: S40.812A - ABRASION OF LEFT UPPER ARM, INITIAL ENCOUNTER Status: Acute Priority: High Current Visit: No Qualifiers: (2) Abrasion of right upper extremity SNOMED Code(s): 228686396 ICD Code: S40.811A - ABRASION OF RIGHT UPPER ARM, INITIAL ENCOUNTER Status : Acute Priority: High Current Visit: No Qualifiers: (3) Laceration of leg, right SNOMED Code(s): 136310043 ICD Code: S81.811A - LACERATION W/O FOREIGN BODY, RIGHT LOWER LEG, INIT ENCNTR Status: Acute Priority: High Current Visit: No Onset Date: ~11/05 Qualifiers: (4) Pain management SNOMED Code(s): 235720155 ICD Code: R52 - PAIN, UNSPECIFIED Status: Acute Priority: High Current Visit: No (5) Wound dehiscence SNOMED Code(s): 945692281 ICD Code: T81.30XA - DISRUPTION OF WOUND, UNSPECIFIED, INITIAL ENCOUNTER Status: Acute Priority: High Current Visit: No (6) Weakness SNOMED Code(s): 01099621 ICD Code: R53.1 - WEAKNESS Status: Chronic Priority: High Current Visit : No - Patient Summary/Data Consults: Consultations 12/09/17 14:08 Consult to Infection Prevention [CONS] Routine Comment: Physician Instructions: Consult to Wound Care Services [CONS] Routine Comment: Physician Instructions: OT Evaluation and Treatment [CONS] Routine Please Evaluate and Treat. OT Reason for Consult: ADL's This query below is only for informational purposes and is not editable. Admission Diagnosis/Problem: Weakness PT Evaluation and Treatment [CONS] Routine Please Evaluate and Treat. PT Reason for Consult: Ambulation This query below is only for informational purposes and is not editable. Admission Diagnosis/Problem: Weakness - Discharge Plan Home Medications: Home Meds Acetaminophen [Tylenol Arthritis] 650 mg PO BID 01/12/17 [History] Aspirin [Lakisha Chewable Aspirin] 81 mg PO DAILY 01/12/17 [History] Budesonide/Formoterol [Symbicort 160-4.5 MCG] 2 puff INH BID 01/12/17 [History] Dabigatran Etexilate Mesylate [Pradaxa] 150 mg PO BID 01/12/17 [History] Docusate Sodium [Colace] 100 mg PO DAILY 01/12/17 [History] Levothyroxine 125 mcg PO ACBREAKFAST 01/12/17 [History] Losartan [Cozaar] 25 mg PO DAILY 01/12/17 [History] Multivitamin with Iron [Multivitamins with Iron] 1 each PO DAILY 01/12/17 [ History] Spironolactone [Aldactone] 25 mg PO DAILY 01/12/17 [History] Terazosin [Hytrin] 5 mg PO DAILY 01/12/17 [History] Tiotropium [Spiriva Handihaler] 2 puff INH DAILY 01/12/17 [History] Torsemide 80 mg PO DAILY 01/12/17 [History] atorvaSTATin Calcium [Atorvastatin Calcium] 80 mg PO QPM 01/12/17 [History] Non-Formulary Medication [NF Drug] 1 each PO BID@1000,1400 each 12/26/17 [Rx] Non-Formulary Medication [NF Drug] 1 each PO DAILY each 12/26/17 [Rx] Non-Formulary Medication [NF Drug] 2 each INH BID each 12/26/17 [Rx] Non-Formulary Medication [NF Drug] 2 each INH DAILY each 12/26/17 [Rx] Patient Handouts: Fall Prevention in the Home - Discharge Summary/Plan Comment Discharge Summary/Plan Comment: Counseled on current discharge instructions in transferring, movement, use of walker at all times, taking care of self, ADLs, f/u PT/OT, wound care and medication use. Patient to f/u in clinic for wound check and monitoring in 1-2 wks. Discussed f/u as directed and as needed if any dehiscence. Discussed strengthening and management and do not overdo things on discharge. Discussed use of immobilizer at all times unless working with PT/OT for further flexibility of the right knee. - Patient Data Vitals - Most Recent: Last Vital Signs Temp 36.8 C 12/26/17 08:00 Pulse 60 12/26/17 08:00 Resp 16 12/26/17 08:00 BP 146/52 H 12/26/17 08:00 Pulse Ox 96 09/06/18 08:00 Weight - Most Recent: 104.043 kg I&O - Last 24 hours: Intake & Output 12/25/17 12/26/17 12/26/17 22:59 06:59 14:59 Intake Total 240 Balance 240 Med Orders - Current: Current Medications Acetaminophen (Tylenol Arthritis Pain) 650 mg PO BID [facility] Last Admin: 12/26/17 07:56 Dose: 650 mg Aspirin (Halfprin) 81 mg PO DAILY [facility] Last Admin: 12/26/17 07:51 Dose: 81 mg Atorvastatin Calcium (Lipitor) 80 mg PO QPM [facility] Last Admin: 12/25/17 19:50 Dose: 80 mg Cephalexin (Keflex) 500 mg PO TID [facility] Last Admin: 12/26/17 07:51 Dose: 500 mg Dabigatran (Pradaxa) 150 mg PO BID [facility] Last Admin: 12/26/17 07:52 Dose: 150 mg Docusate Sodium (Colace) 100 mg PO DAILY [facility] Last Admin: 12/26/17 07:51 Dose: 100 mg Levothyroxine Sodium (Synthroid) 125 mcg PO ACBREAKFAST [facility] Last Admin: 12/26/17 07:52 Dose: 125 mcg Losartan Potassium (Cozaar) 25 mg PO DAILY [facility] Last Admin: 12/26/17 07:53 Dose: 25 mg Multivitamins/Minerals (Thera M Plus) 1 tab PO DAILY [facility] Last Admin: 12/26/17 07:51 Dose: 1 tab Spiriva Respimat 2 each INH DAILY [facility] Last Admin: 12/26/17 07:55 Dose: 2 each Budesonide/Formoterol 160mcg/4.5mcg 2 each INH BID [facility] Last Admin: 12/26/17 07:54 Dose: 2 each Ensure Enlive 1 each PO DAILY [facility] Last Admin: 12/26/17 07:55 Dose: 1 each Yobani 1 each PO BID@1000,1400 [facility] Last Admin: 12/25/17 13:49 Dose: 1 each Spironolactone (Aldactone) 25 mg PO DAILY [facility] Last Admin: 12/26/17 07:51 Dose: 25 mg Terazosin HCl (Hytrin) 5 mg PO DAILY [facility] Last Admin: 12/26/17 07:51 Dose: 5 mg Torsemide (Demadex) 80 mg PO DAILY [facility] Last Admin: 12/26/17 07:50 Dose: 80 mg Discontinued Medications Ceftriaxone Sodium (Rocephin) 1 gm IV Q24H [facility] Last Admin: 12/09/17 19:10 Dose: Not Given Ceftriaxone Sodium 1 gm/ (Sodium Chloride) 50 mls @ 100 mls/hr IV Q24H [facility] Last Admin: 12/09/17 19:10 Dose: Not Given Ceftriaxone Sodium 1 gm/ (Sodium Chloride) 50 mls @ 100 mls/hr IV Q24H [facility] Stop: 12/17/17 11:30 Last Admin: 12/17/17 11:53 Dose: 100 mls/hr Losartan Potassium (Cozaar) 25 mg PO DAILY [facility] Last Admin: 12/13/17 08:22 Dose: 25 mg Mometasone Furoate/Formoterol Fumar (Dulera 200-5 Mcg) 0 puff IH BID [facility] Last Admin: 12/10/17 07:44 Dose: 2 puff (Dabigatran Etexilate Mesylate [ Pradaxa] 150 Mg)*Pt Own Med* 150 mg PO BID [facility] Last Admin: 12/10/17 07:44 Dose: 150 mg Sodium Chloride (Saline Flush) 10 ml FLUSH BID [facility] Last Admin: 12/18/17 19:58 Dose: Not Given Terazosin HCl (Hytrin) 5 mg PO DAILY [facility] Last Admin: 12/10/17 12:22 Dose: 5 mg Tuberculin PPD (Aplisol) 5 unit IDERM ONETIME ONE Stop: 12/09/17 14:09 Last Admin: 12/09/17 17:11 Dose: 5 unit Tuberculin PPD (Aplisol) 5 unit IDERM ONETIME ONE Stop: 12/23/17 08:01 Last Admin: 12/23/17 07:44 Dose: 5 unit
[2017-12-26] MEDS: JUVEN PO SCH (13:12)
== END 2017-12-26 14:10 | disposition home or self-care (01) | DRG 948 ==
LOC: LB.MS 14:04 → UNDOADMIN 14:04 → LB.MS 14:08 → UNDOADMIN 14:08
PROVIDERS: ADMIT Family Medicine; ATTEND Family Medicine
DX: R53.1 Weakness (principal); T81.30XD Disruption of wound, unspecified, subsequent encounter; S40.812D Abrasion of left upper arm, subsequent encounter; S40.811D Abrasion of right upper arm, subsequent encounter; S81.811D Laceration without foreign body, right lower leg, subsequent encounter; R52 Pain, unspecified; Z11.1 Encounter for screening for respiratory tuberculosis; Z95.0 Presence of cardiac pacemaker; Z95.1 Presence of aortocoronary bypass graft; Z95.2 Presence of prosthetic heart valve; Z79.82 Long term (current) use of aspirin; Z79.01 Long term (current) use of anticoagulants; Z96.659 Presence of unspecified artificial knee joint
CPT/HCPCS: 86580; 97110-GO; 97110-GP; 97116-GP; 97165-GO; 97530-GO; 97530-GP; 97535-GO; A9270-GY; J0696; J7050